=== PATIENT | male | born 1960 | race Caucasian/White ===

== ENCOUNTER 2018-03-04 12:12 | Emergency (ER) | payer OTHER ==
[~2018-03-04] VITALS: Ht 177.8 cm; Wt 78.0 kg
[~2018-03-04 12:12] MED LIST: ADVAIR 100/501 PUFF1 INH
[2018-03-04] MEDS ORDERED: ADVAIR HFA 115-12 GM INH (12:24)
[2018-03-04] MEDS ORDERED: LORAZEPAM2 MG ORAL (12:24)
[2018-03-04] MEDS ORDERED: ZOCOR20 M1 ORAL (12:24)
[2018-03-04] MEDS ORDERED: GABAPENTIN100 MG ORAL (12:24)
[2018-03-04] MEDS ORDERED: VENTOLIN HFA18 GM INH (12:24)
[2018-03-04] MEDS ORDERED: FAMOTIDINE20 MG ORAL (12:24)
[2018-03-04] MEDS ORDERED: Albuterol/Ipratropium 3ml neb HHN ONE (12:45)
[2018-03-04 13:40] VITALS: BP 104/72
--- NOTE | 2018-03-04 13:54 | Diagnostic Imaging Report ---
Indications: Syncopal episode yesterday Technique: Spiral acquisitions obtained through the brain. Angled axial and coronal 5 x 5 mm slices were reconstructed. Total dose length product 1418.31 mGycm. CTDI vol(s) 70.38 mGy. Dose reduction achieved using automated exposure control Comparison: None. Findings: No acute intracranial hemorrhage nor edema. No mass effect nor midline shift. Normal-sized ventricles and extra-axial CSF spaces. Normal breaux-white differentiation. The visualized orbits and sinuses are unremarkable. Intact calvarium. The mastoids are clear. Impression: Negative The CT scanner at [facility] is accredited by the [employer] and the scans are performed using protocols designed to limit radiation exposure to as low as reasonably achievable to attain images of sufficient resolution adequate for diagnostic evaluation.
[2018-03-04] MEDS ORDERED: VOLTAREN100 G1 TP (14:22)
[2018-03-04 14:29] VITALS: BP 104/72
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
== END 2018-03-04 14:35 | disposition home or self-care (01) ==
LOC: EMR 13:36
DX: S22.060A Wedge compression fracture of T7-T8 vertebra, initial encounter for closed fracture (principal); S09.90XA Unspecified injury of head, initial encounter; Y08.09XA Assault by strike by other specified type of sport equipment, initial encounter; Y92.89 Other specified places as the place of occurrence of the external cause; R42 Dizziness and giddiness; J44.9 Chronic obstructive pulmonary disease, unspecified; F31.9 Bipolar disorder, unspecified
CPT/HCPCS: 70450; 71250; 99284; J7620

== ENCOUNTER 2018-06-12 05:48 | Emergency (ER) | payer OTHER ==
[~2018-06-12] VITALS: Ht 177.8 cm; Wt 72.6 kg
[~2018-06-12 05:48] MED LIST changes: +ADVAIR HFA 115-12 GM INH; +FAMOTIDINE20 MG ORAL; +GABAPENTIN100 MG ORAL; +LORAZEPAM2 MG ORAL; +VENTOLIN HFA18 GM INH; +VOLTAREN100 G1 TP; +ZOCOR20 M1 ORAL
[2018-06-12] MEDS ORDERED: Pantoprazole Inj IV ONE (06:00)
[2018-06-12] MEDS ORDERED: Mylanta II UD 30ml ORAL ONE (06:00)
[2018-06-12] MEDS ORDERED: Lidocaine 2% Visc 15ml soln ORAL ONE (06:00)
--- NOTE | 2018-06-12 06:00 | Emergency Room Report ---
History of Present Illness General Chief Complaint: Abdominal Pain Source: Patient (Rashaad Thomas MD) Present Illness HPI Is a 57-year-old male with a history of gastritis, upper GI bleed to presents with chief complaint of epigastric pain. Onset tonight. Pain is 10 out of 10. No radiation. No nausea no vomiting. Denies any current alcohol use. No diarrhea. Nothing made it better. Nothing made it worse. Similar symptom in the past. No melena. (Rashaad Thomas MD) Allergies: Coded Allergies: No Known Allergies (Unverified , 06/24/15) Patient History Past Medical History: see triage record, old chart reviewed Past Surgical History: annie Pertinent Family History: none Social History: Reports: smoking Immunizations: other Reviewed Nursing Documentation: PMH: Agreed; PSxH: Agreed (Rashaad Thomas MD) Nursing Documentation-PMH Hx COPD: Yes History Of Psychiatric Problem: Yes - BIPOLAR (Rashaad Thomas MD) Review of Systems Eye: Denies: eye pain, blurred vision ENT: Denies: ear pain, nose congestion, throat swelling Respiratory: Denies: cough, shortness of breath Cardiovascular: Denies: chest pain, palpitations Gastrointestinal: Reports: abdominal pain; Denies: diarrhea, nausea, vomiting Musculoskeletal: Denies: back pain, joint pain Skin: Denies: rash Neurological: Denies: headache, numbness Endocrine: Denies: increased thirst, increased urine Hematologic/Lymphatic: Denies: easy bruising All Other Systems: negative except mentioned in HPI (Rashaad Thomas MD) Physical Exam Vital Signs Date Time Temp Pulse Resp B/P (MAP) Pulse Ox O2 Delivery O2 Flow Rate FiO2 06/12/18 05:47 98.4 80 18 136/74 100 Room Air vitals normal Sp02 EP Interpretation: reviewed, normal General Appearance: well appearing, no apparent distress, alert Head: normocephalic, atraumatic Eyes: bilateral eye PERRL, bilateral eye EOMI ENT: hearing grossly normal, normal pharynx Neck: full range of motion, supple, no meningismus Respiratory: chest non-tender, lungs clear, normal breath sounds Cardiovascular #1: regular rate, rhythm, no murmur Gastrointestinal: normal bowel sounds, no mass, no organomegaly, no bruit, non- distended, tenderness - Epigastric Musculoskeletal: back normal, gait/station normal, normal range of motion Psychiatric: mood/affect normal Skin: warm/dry (Rashaad Thomas MD) Medical Decision Making Diagnostic Impression: Primary Impression: Abdominal pain Qualified Codes: R10.13 - Epigastric pain Additional Impression: Amphetamine abuse ER Course Patient with epigastric pain. Differential include gastritis, peptic ulcer disease, sharp, acute abdomen to name a few. Labs pending. I will sign this patient out to Dr. Huang for final disposition. (Rashaad Thomas MD) ER Course Please see above note. Patient is improved. Pain is now 3/10. Abdominal exam is soft. White count is 13 1 without left shift. Rest of labs are unremarkable. Discussed findings with patient and the need for close outpatient follow-up and observation. Patient stable for outpatient observation and treatment. Laboratory Tests Test 06/12/18 06:00 06/12/18 07:50 White Blood Count 13.1 K/UL (4.8-10.8) H Red Blood Count 5.39 M/UL (4.70-6.10) Hemoglobin 16.1 G/DL (14.2-18.0) Hematocrit 48.1 % (42.0-52.0) Mean Corpuscular Volume 89 FL (80-99) Mean Corpuscular Hemoglobin 29.9 PG (27.0-31.0) Mean Corpuscular Hemoglobin Concent 33.6 G/DL (32.0-36.0) Red Cell Distribution Width 12.4 % (11.6-14.8) Platelet Count 467 K/UL (150-450) H Mean Platelet Volume 5.0 FL (6.5-10.1) L Neutrophils (%) (Auto) 64.5 % (45.0-75.0) Lymphocytes (%) (Auto) 24.1 % (20.0-45.0) Monocytes (%) (Auto) 8.3 % (1.0-10.0) Eosinophils (%) (Auto) 2.0 % (0.0-3.0) Basophils (%) (Auto) 1.0 % (0.0-2.0) Sodium Level 141 MMOL/L (136-145) Potassium Level 3.8 MMOL/L (3.5-5.1) Chloride Level 100 MMOL/L (98-107) Carbon Dioxide Level 35 MMOL/L (21-32) H Anion Gap 6 mmol/L (5-15) Blood Urea Nitrogen 21 mg/dL (7-18) H Creatinine 1.3 MG/DL (0.55-1.30) Estimate Glomerular Filtration Rate 56.9 mL/min (>60) Glucose Level 118 MG/DL (74-106) H Calcium Level 10.0 MG/DL (8.5-10.1) Total Bilirubin 0.3 MG/DL (0.2-1.0) Aspartate Amino Transferase (AST) 12 U/L (15-37) L Alanine Aminotransferase (ALT) 23 U/L (12-78) Alkaline Phosphatase 125 U/L (46-116) H Total Protein 8.1 G/DL (6.4-8.2) Albumin 3.7 G/DL (3.4-5.0) Globulin 4.4 g/dL Albumin/Globulin Ratio 0.8 (1.0-2.7) L Lipase 141 U/L (73-393) Urine Color Pale yellow Urine Appearance Clear Urine pH 7 (4.5-8.0) Urine Specific [place] 1.005 (1.005-1.035) Urine Protein Negative (NEGATIVE) Urine Glucose (UA) Negative (NEGATIVE) Urine Ketones Negative (NEGATIVE) Urine Blood Negative (NEGATIVE) Urine Nitrite Negative (NEGATIVE) Urine Bilirubin Negative (NEGATIVE) Urine Urobilinogen Normal MG/DL (0.0-1.0) Urine Leukocyte Esterase Negative (NEGATIVE) Urine Opiates Screen Negative (NEGATIVE) Urine Barbiturates Screen Negative (NEGATIVE) Phencyclidine (PCP) Screen Negative (NEGATIVE) Urine Amphetamines Screen Positive (NEGATIVE) H Urine Benzodiazepines Screen Negative (NEGATIVE) Urine Cocaine Screen Negative (NEGATIVE) Urine Marijuana (THC) Screen Negative (NEGATIVE) (Graham Huang MD) Rhythm Strip Diag. Results EP Interpretation: yes Rate: 88 Rhythm: NSR, no PVC's, no ectopy (Rashaad Thomas MD) EP Interpretation: yes Rhythm: NSR, no PVC's, no ectopy (Graham Huang MD) Chest X-Ray Diagnostic Results Chest X-Ray Diagnostic Results : Chest X-Ray Ordered: Yes # of Views/Limited/Complete: 1 View Indication: Chest Pain EP Interpretation: Yes Interpretation: no consolidation, no effusion, no pneumothorax, no acute cardiopulmonary disease Impression: No acute disease Electronically Signed by: Rashaad Thomas MD (Rashaad Thomas MD) Last Vital Signs Date Time Temp Pulse Resp B/P (MAP) Pulse Ox O2 Delivery O2 Flow Rate FiO2 06/12/18 05:47 98.4 80 18 136/74 100 Room Air Status: improved (Rashaad Thomas MD) Status: improved (Graham Huang MD) Disposition: HOME, SELF-CARE Condition: Stable Scripts Acetaminophen (Tylenol) 325 Mg Tablet 650 MG ORAL Q6H PRN for Prn Pain/Headache/Temp > 101, #20 TAB 0 Refills Prov: Graham Huang MD 06/12/18 Mag Hydrox/Al Hydrox/Simeth (MAALOX MAXIMUM STRENGTH SUSP) 355 Ml Oral.susp 30 ML PO Q6HR, #240 ML Prov: Graham Huang MD 06/12/18 Ondansetron Odt* (ZOFRAN ODT*) 4 Mg Tab.rapdis 4 MG BC EVERY 8 HOURS, #6 TAB 0 Refills Prov: Graham Huang MD 06/12/18 Rashaad Thomas MD Jun 12, 2018 06:00 Graham Huang MD Jun 12, 2018 08:03
[2018-06-12] MEDS ORDERED: GABAPENTIN300 MG ORAL (06:02)
--- NOTE | 2018-06-12 06:05 | NUR ---
ED Nurse Note: Pt brought in ER by EMT. Pt states he has abdominal pain x 3 days. Pt denies drinking. Pt nausea and vomitting all day today. Pt is AO x 4times, VSS, on room air no distress. SUKHI seen Pt at bedside.
--- NOTE | 2018-06-12 06:10 | NUR ---
ED Nurse Note: Blood sample sent to lab.
--- NOTE | 2018-06-12 06:14 | NUR ---
ED Nurse Note: X ray at bedside.
[2018-06-12 06:20] VITALS: BP 142/80
[2018-06-12 06:20] LABS: HEMATOCRIT 48.1 % (42.0-52.0); HEMOGLOBIN 16.1 G/DL (14.2-18.0); LYMPHOCYTES % (AUTO) 24.1 % (20.0-45.0); MEAN CORPUSCULAR VOLUME 89 FL (80-99); MONOCYTES % (AUTO) 8.3 % (1.0-10.0); NEUTROPHILS % (AUTO) 64.5 % (45.0-75.0); PLATELET COUNT 467 K/UL (150-450); RED BLOOD COUNT 5.39 M/UL (4.70-6.10); RED CELL DISTRIBUTION WIDTH 12.4 % (11.6-14.8); WHITE BLOOD COUNT 13.1 K/UL (4.8-10.8)
[2018-06-12 06:31] LABS: ANION GAP 6 mmol/L (5-15); BLOOD UREA NITROGEN 21 mg/dL (7-18); CARBON DIOXIDE 35 MMOL/L (21-32); CHLORIDE 100 MMOL/L (98-107); CREATININE 1.3 MG/DL (0.55-1.30); POTASSIUM 3.8 MMOL/L (3.5-5.1); SODIUM 141 MMOL/L (136-145)
[2018-06-12 06:36] LABS: ALANINE AMINOTRANSFERASE 23 U/L (12-78); ALBUMIN 3.7 G/DL (3.4-5.0); ALBUMIN/GLOBULIN RATIO 0.8 (1.0-2.7); ALKALINE PHOSPHATASE 125 U/L (46-116); ASPARTATE AMINO TRANSFERASE 12 U/L (15-37); BILIRUBIN,TOTAL 0.3 MG/DL (0.2-1.0)
--- NOTE | 2018-06-12 07:29 | NUR ---
ED Nurse Note: Patient sleeping in bed. No facial grimacing or guarding noted. Patient reports decreased pain. No N/V or D noted. Bed in lowest position.
[2018-06-12 07:30] VITALS: BP 154/88
[2018-06-12 08:00] LABS: APPEARANCE,URINE CLEAR; BILIRUBIN, URINE NEGATIVE (NEGATIVE); COLOR,URINE PALE YELLOW; GLUCOSE, URINE (UA) NEGATIVE (NEGATIVE); KETONES,URINE NEGATIVE (NEGATIVE); LEUKOCYTE ESTERASE ,URINE NEGATIVE (NEGATIVE); NITRITE,URINE NEGATIVE (NEGATIVE); PH,URINE 7 (4.5-8.0); PROTEIN,URINE NEGATIVE (NEGATIVE); UROBILINOGEN,URINE NORMAL MG/DL (0.0-1.0)
[2018-06-12] MEDS ORDERED: MAALOX MAXIMUM355 M1 PO (08:05)
[2018-06-12] MEDS ORDERED: ONDANSETRON ODT4 MG BC (08:05)
[2018-06-12] MEDS ORDERED: TYLENOL325 MG ORAL (08:05)
[2018-06-12 08:22] VITALS: BP 144/85
--- NOTE | 2018-06-12 08:40 | NUR ---
ED Nurse Note: Patient is cleared to be discharged per ERMD, Patient was given dc and prescription instructions, pt was able to verbalize understanding, pt id band and iv site removed without complications. pt is able to ambulate with steady gait. pt took all belongings.
--- NOTE | 2018-06-12 10:36 | Diagnostic Imaging Report ---
Indication: Dyspnea Comparison: 06/30/2015 A single view chest radiograph was obtained. Findings: Cardiomediastinal appearance is within normal limits for age. The lungs are clear. Pulmonary vascularity is appropriate. The diaphragmatic contour is smooth and costophrenic angles are sharp. No pleural effusions are identified. The bones are unremarkable. Impression: No acute findings
== END 2018-06-12 09:00 | disposition home or self-care (01) ==
LOC: EDBD 05:48 → EMR 06:37
DX: R10.13 Epigastric pain (principal); F15.10 Other stimulant abuse, uncomplicated; J44.9 Chronic obstructive pulmonary disease, unspecified; F31.9 Bipolar disorder, unspecified; Z87.891 Personal history of nicotine dependence
CPT/HCPCS: 36415; 71045; 80053; 80307; 81003; 83690; 85025; 96361; 96374; 99284; C9113

== ENCOUNTER 2018-09-21 17:46 | Emergency (ER) | payer OTHER ==
[~2018-09-21] VITALS: Ht 170.2 cm; Wt 72.1 kg
[~2018-09-21 17:46] MED LIST changes: +GABAPENTIN300 MG ORAL; +MAALOX MAXIMUM355 M1 PO; +ONDANSETRON ODT4 MG BC; +PROTONIX40 MG ORAL; +TYLENOL325 MG ORAL
[2018-09-21 17:54] VITALS: BP 144/107
[2018-09-21] MEDS ORDERED: DALIRESP500 MCG PO (17:55)
[2018-09-21] MEDS ORDERED: ZOLOFT100 MG ORAL (17:55)
--- NOTE | 2018-09-21 17:58 | NUR ---
ED Nurse Note: pt brought by RA from home due to abdominal pain aw nausea and vomiting since last night. pt also c/o consitpation. last BM was 2 days ago. epigastirc pain 12/25. AAO x4. respirations even and non-labored noted. on telemetry monitor. will wait for the further order.
[2018-09-21] MEDS ORDERED: Morphine Sulfate 4mg/ml Inj (IV USE ONLY) IVP ONE (18:00)
--- NOTE | 2018-09-21 18:07 | Emergency Room Report ---
History of Present Illness General Chief Complaint: Abdominal Pain Source: Patient Present Illness HPI The patient is brought in by EMS for several days of vomiting and inability to move his bowels. He last moved his bowels 2 days ago. He denies any blood or melena at that time. He cannot keep down water at this time. He is vomiting up bile without coffee grounds or blood. He complains about severe epigastric and chest pain that is constant at this time. He rates it 12-15/10 burning aching not radiating to his back although he does have chronic back pain. Is been unable to take any pain medication. The patient had some surgery for problem in his duodenum many years ago. He is not sure what the problem was. He has also been seen here for gastritis in the past. The patient smokes and has a history of COPD. Uses an inhaler at home. There is no phlegm or productive cough. He denies any fevers or chills. Chronic back pain with T7 compression fracture. He does drink alcohol but not daily. Allergies: Coded Allergies: No Known Allergies (Unverified , 06/24/15) Patient History Past Medical History: see triage record, old chart reviewed Social History: Reports: smoking, alcohol use Social History Narrative From home Reviewed Nursing Documentation: PMH: Agreed; PSxH: Agreed Nursing Documentation-PMH Past Medical History: No History, Except For Hx COPD: Yes Review of Systems All Other Systems: negative except mentioned in HPI Physical Exam Vital Signs Date Time Temp Pulse Resp B/P (MAP) Pulse Ox O2 Delivery O2 Flow Rate FiO2 09/21/18 17:42 97.9 116 17 139/91 (107) 97 Room Air Sp02 EP Interpretation: reviewed, normal General Appearance: well appearing, GCS 15, non-toxic, mild distress - Pain Head: normocephalic, atraumatic Eyes: bilateral eye normal inspection, bilateral eye PERRL, bilateral eye EOMI ENT: dry mucus membranes Neck: supple Respiratory: lungs clear, normal breath sounds Cardiovascular #1: regular rate, rhythm Cardiovascular #2: 2+ radial (R) Gastrointestinal: normal inspection, non tender, no mass, non-distended, no guarding, no rebound, tenderness - Epigastric, decreased bowel sounds Musculoskeletal: back normal, normal range of motion Neurologic: alert, oriented x3, grossly normal Psychiatric: mood/affect normal Skin: no rash Medical Decision Making Diagnostic Impression: Primary Impression: Abdominal pain Qualified Codes: R10.13 - Epigastric pain Additional Impressions: Leukocytosis Qualified Codes: D72.828 - Other elevated white blood cell count Renal insufficiency Nausea and vomiting Qualified Codes: R11.14 - Bilious vomiting ER Course Patient presents with vomiting and inability to move his bowels for at least 2 days with epigastric pain. Includes gastritis, peptic ulcer disease, pancreatitis, small bowel obstruction, diverticulitis amongst others. Patient appears dehydrated and has significant pain at this time. Evaluation with EKG, chest x-ray and labs. Patient treated with IV hydration, Pepcid, Zofran and morphine. EKG sinus rhythm with left anterior fascicular block. No acute injury. CXR clear. Abd. surgical clips RUQ. WBC elevated. Renal insufficiency. Ca elevated Slightly improved after treatment. Sending ionized calcium. Ionized calcium normal. Discussed with Dr. Howell - accepted in transfer. Laboratory Tests Test 09/21/18 18:00 09/21/18 18:10 09/21/18 19:08 White Blood Count 16.3 K/UL (4.8-10.8) H Red Blood Count 5.70 M/UL (4.70-6.10) Hemoglobin 17.1 G/DL (14.2-18.0) Hematocrit 51.0 % (42.0-52.0) Mean Corpuscular Volume 89 FL (80-99) Mean Corpuscular Hemoglobin 29.9 PG (27.0-31.0) Mean Corpuscular Hemoglobin Concent 33.5 G/DL (32.0-36.0) Red Cell Distribution Width 11.8 % (11.6-14.8) Platelet Count 403 K/UL (150-450) Mean Platelet Volume 5.1 FL (6.5-10.1) L Neutrophils (%) (Auto) 81.3 % (45.0-75.0) H Lymphocytes (%) (Auto) 11.6 % (20.0-45.0) L Monocytes (%) (Auto) 6.0 % (1.0-10.0) Eosinophils (%) (Auto) 0.1 % (0.0-3.0) Basophils (%) (Auto) 0.9 % (0.0-2.0) Prothrombin Time 10.2 SEC (9.30-11.50) Prothrombin Time INR 1.0 (0.9-1.1) PTT 25 SEC (23-33) Sodium Level 143 MMOL/L (136-145) Potassium Level 3.7 MMOL/L (3.5-5.1) Chloride Level 95 MMOL/L (98-107) L Carbon Dioxide Level 39 MMOL/L (21-32) H Anion Gap 10 mmol/L (5-15) Blood Urea Nitrogen 23 mg/dL (7-18) H Creatinine 1.5 MG/DL (0.55-1.30) H Estimate Glomerular Filtration Rate 48.1 mL/min (>60) Glucose Level 157 MG/DL (74-106) H Calcium Level 12.4 MG/DL (8.5-10.1) H Total Bilirubin 0.5 MG/DL (0.2-1.0) Aspartate Amino Transferase (AST) 18 U/L (15-37) Alanine Aminotransferase (ALT) 31 U/L (12-78) Alkaline Phosphatase 166 U/L (46-116) H Total Creatine Kinase 47 U/L (26-308) Troponin I 0.000 ng/mL (0.000-0.056) Total Protein 8.6 G/DL (6.4-8.2) H Albumin 4.5 G/DL (3.4-5.0) Globulin 4.1 g/dL Albumin/Globulin Ratio 1.1 (1.0-2.7) Lipase 84 U/L (73-393) Serum Alcohol < 3 mg/dL Ionized Calcium (Measured) Pending EKG Diagnostic Results Rate: normal Rhythm: NSR ST Segments: no acute changes - Left anterior fascicular block Rhythm Strip Diag. Results EP Interpretation: yes Rhythm: NSR, no PVC's, no ectopy Chest X-Ray Diagnostic Results Chest X-Ray Diagnostic Results : Chest X-Ray Ordered: Yes # of Views/Limited/Complete: 1 View Indication: Other EP Interpretation: Yes Interpretation: no consolidation, no effusion, no pneumothorax Impression: No acute disease Electronically Signed by: Electronically signed by Graham Huang MD Other X-Ray Diagnostic Results Other X-Ray Diagnostic Results : X-Ray ordered: Abdomen # of Views/Limited Vs Complete: 2 View Indication: Pain EP Interpretation: Yes Interpretation: nonspecific bowel gas, no sbo, other - clips RUQ Impression: Other Electronically Signed by: Electronically signed by Graham Huang MD Last Vital Signs Date Time Temp Pulse Resp B/P (MAP) Pulse Ox O2 Delivery O2 Flow Rate FiO2 09/21/18 19:43 98.1 89 18 154/98 100 Room Air Status: improved Disposition: [facility] [place] [facility] Condition: Serious Graham Huang MD Sep 21, 2018 18:07
[2018-09-21 18:17] LABS: BASOPHILS % (AUTO) 0.9 % (0.0-2.0); EOSINOPHILS % (AUTO) 0.1 % (0.0-3.0); HEMOGLOBIN 17.1 G/DL (14.2-18.0); LYMPHOCYTES % (AUTO) 11.6 % (20.0-45.0); MEAN CORPUSCULAR VOLUME 89 FL (80-99); NEUTROPHILS % (AUTO) 81.3 % (45.0-75.0); PLATELET COUNT 403 K/UL (150-450); RED CELL DISTRIBUTION WIDTH 11.8 % (11.6-14.8); WHITE BLOOD COUNT 16.3 K/UL (4.8-10.8)
[2018-09-21 18:20] LABS: ANION GAP 10 mmol/L (5-15); BLOOD UREA NITROGEN 23 mg/dL (7-18); CALCIUM 12.4 MG/DL (8.5-10.1); CARBON DIOXIDE 39 MMOL/L (21-32); CHLORIDE 95 MMOL/L (98-107); CREATININE 1.5 MG/DL (0.55-1.30); POTASSIUM 3.7 MMOL/L (3.5-5.1); SODIUM 143 MMOL/L (136-145)
[2018-09-21 18:24] LABS: ALANINE AMINOTRANSFERASE 31 U/L (12-78); ALBUMIN 4.5 G/DL (3.4-5.0); ALBUMIN/GLOBULIN RATIO 1.1 (1.0-2.7); ALKALINE PHOSPHATASE 166 U/L (46-116); ASPARTATE AMINO TRANSFERASE 18 U/L (15-37); BILIRUBIN,TOTAL 0.5 MG/DL (0.2-1.0); CREATINE KINASE 47 U/L (26-308)
--- NOTE | 2018-09-21 19:03 | NUR ---
HAND-OFF: Report given to Dillon Mina RN. endorsing pending urine sample.
--- NOTE | 2018-09-21 19:08 | NUR ---
ED Nurse Note: received patient from jorge luis baldwin. patient resting comfortably nad. patient unable to provide urine sample. pt aware of pending transfer.
[2018-09-21 19:10] VITALS: BP 154/98
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
[2018-09-21 19:43] VITALS: BP 154/98
--- NOTE | 2018-09-22 12:06 | Diagnostic Imaging Report ---
Indication: Abdominal pain Technique: Supine view of the abdomen Comparison: 06/24/2015 Findings: Bowel gas pattern is unremarkable. There are cholecystectomy clips. Findings are unchanged Impression: No acute process
--- NOTE | 2018-09-22 12:07 | Diagnostic Imaging Report ---
Indication: Pain Technique: One view of the chest Comparison: 08/04/2018 Findings: Less optimal inspiration currently. Lungs and pleural spaces are clear. Normal heart size. Somewhat tortuous aorta Impression: No acute process
== END 2018-09-21 19:45 | disposition short-term general hospital (02) ==
LOC: EDBD 17:46 → EMR 18:40
DX: R11.14 Bilious vomiting (principal); R10.13 Epigastric pain; D72.828 Other elevated white blood cell count; N28.9 Disorder of kidney and ureter, unspecified; R07.9 Chest pain, unspecified; F17.200 Nicotine dependence, unspecified, uncomplicated; J44.9 Chronic obstructive pulmonary disease, unspecified; I44.4 Left anterior fascicular block
CPT/HCPCS: 36415; 71045; 74018; 80053; 80329; 82330; 82550; 83690; 84484; 85025; 85610; 85730; 93005; 96361; 96374; 96375; 99285; J2270; J2405; S0028

== ENCOUNTER 2018-12-09 15:46 | Emergency (ER) | payer OTHER ==
[~2018-12-09] VITALS: Ht 167.6 cm; Wt 65.8 kg
[~2018-12-09 15:46] MED LIST changes: +DALIRESP500 MCG PO; +ZOLOFT100 MG ORAL
[2018-12-09 16:00] VITALS: BP 151/98
--- NOTE | 2018-12-09 16:00 | NUR ---
ED Nurse Note: pt brought in to ER by ambulance from [facility] care due to general body pain 5/10 without trauma or injury. calm and cooperative but fatigued. skin clean and intact. no acute distress noted at this time. pt is in gown and on engine monitor.
--- NOTE | 2018-12-09 16:10 | NUR ---
ED Nurse Note: SUKHI at bedside. pt reported to SUKHI that he has abdominal pain and nausea which he denied earlier.
--- NOTE | 2018-12-09 16:21 | Emergency Room Report ---
History of Present Illness General Chief Complaint: General Complaint Source: EMS Present Illness HPI Disclaimer: Please note that this report is being documented using DRAGON technology. This can lead to erroneous entry secondary to incorrect interpretation by the dictating instrument. HPI: 58-year-old male with history of COPD presents for evaluation of abdominal pain, vomiting, diarrhea, cough and myalgias. Symptoms began 2 days ago. He noticed abdominal discomfort and several episodes of nonbloody, nonbilious emesis as well as profuse watery diarrhea. Denies male or hematochezia. Denies dysuria or hematuria. He notes pain over the middle of the back and a worsening cough. He has a cough at baseline given his COPD and is still smoking though he states this is aggravated. He notes subjective fevers, fatigue, chills. Denies sore throat or nasal congestion. PMH: COPD, disc herniation PSH: Hernia repair Allergies: Denies Social Hx: Current smoker Allergies: Coded Allergies: No Known Allergies (Unverified , 06/24/15) Nursing Documentation-PMH Hx COPD: Yes History Of Psychiatric Problem: Yes - bipolar Review of Systems All Other Systems: negative except mentioned in HPI Physical Exam Vital Signs Date Time Temp Pulse Resp B/P (MAP) Pulse Ox O2 Delivery O2 Flow Rate FiO2 12/09/18 15:48 97.9 86 18 139/96 (110) 97 Room Air General: Awake and alert, no acute distress HEENT: NC/AT. EOMI. Neck: Supple, trachea midline Chest Wall: No tenderness, no deformity Cardiovascular: RRR. S1 and S2 normal. No murmur appreciated Resp: Normal work of breathing. Persistent cough throughout my evaluations. Bilateral crackles at the bases with expiratory wheezes. Abdomen: Abdomen is soft, nondistended. Tenderness diffusely with no focal tenderness Skin: Intact. No abrasions, laceration or rash over the exposed skin MSK: Normal tone and bulk. Moving all extremities. No obvious deformity. Neuro: Awake and alert. Mentating appropriately. Back/Spine: No midline tenderness in the cervical, thoracic or lumbosacral spine. There is significant paraspinal tenderness and tenderness over the trapezius bilaterally. Medical Decision Making Diagnostic Impression: Primary Impression: Abdominal pain, vomiting, and diarrhea Additional Impression: Viral syndrome ER Course 58-year-old male presents for evaluation of abdominal pain, vomiting, diarrhea, worsening cough and subjective fevers and chills. Differential includes but not limited to viral syndrome, gastroenteritis, pneumonia, bronchitis, COPD exacerbation. He is in no respiratory distress though he does have a cough and bilateral crackles. Will obtain chest x-ray, lab work to evaluate for dehydration, treat with antiemetics, IV fluid bolus and Toradol for myalgias. Laboratory Tests Test 12/09/18 16:30 12/09/18 18:00 White Blood Count 9.7 K/UL (4.8-10.8) Red Blood Count 5.13 M/UL (4.70-6.10) Hemoglobin 15.2 G/DL (14.2-18.0) Hematocrit 45.8 % (42.0-52.0) Mean Corpuscular Volume 89 FL (80-99) Mean Corpuscular Hemoglobin 29.7 PG (27.0-31.0) Mean Corpuscular Hemoglobin Concent 33.3 G/DL (32.0-36.0) Red Cell Distribution Width 10.8 % (11.6-14.8) L Platelet Count 337 K/UL (150-450) Mean Platelet Volume 5.4 FL (6.5-10.1) L Neutrophils (%) (Auto) 58.3 % (45.0-75.0) Lymphocytes (%) (Auto) 27.2 % (20.0-45.0) Monocytes (%) (Auto) 9.9 % (1.0-10.0) Eosinophils (%) (Auto) 3.2 % (0.0-3.0) H Basophils (%) (Auto) 1.3 % (0.0-2.0) Sodium Level 141 MMOL/L (136-145) Potassium Level 4.4 MMOL/L (3.5-5.1) Chloride Level 103 MMOL/L (98-107) Carbon Dioxide Level 29 MMOL/L (21-32) Anion Gap 9 mmol/L (5-15) Blood Urea Nitrogen 17 mg/dL (7-18) Creatinine 1.0 MG/DL (0.55-1.30) Estimate Glomerular Filtration Rate > 60 mL/min (>60) Glucose Level 100 MG/DL (74-106) Calcium Level 9.5 MG/DL (8.5-10.1) Total Bilirubin 0.2 MG/DL (0.2-1.0) Aspartate Amino Transferase (AST) 13 U/L (15-37) L Alanine Aminotransferase (ALT) 18 U/L (12-78) Alkaline Phosphatase 129 U/L (46-116) H Troponin I 0.000 ng/mL (0.000-0.056) Total Protein 7.0 G/DL (6.4-8.2) Albumin 3.6 G/DL (3.4-5.0) Globulin 3.4 g/dL Albumin/Globulin Ratio 1.1 (1.0-2.7) Lipase 124 U/L (73-393) Urine Color Pale yellow Urine Appearance Clear Urine pH 6 (4.5-8.0) Urine Specific [place] 1.020 (1.005-1.035) Urine Protein 2+ (NEGATIVE) H Urine Glucose (UA) Negative (NEGATIVE) Urine Ketones Negative (NEGATIVE) Urine Blood Negative (NEGATIVE) Urine Nitrite Negative (NEGATIVE) Urine Bilirubin Negative (NEGATIVE) Urine Urobilinogen Normal MG/DL (0.0-1.0) Urine Leukocyte Esterase Negative (NEGATIVE) Urine RBC 0-2 /HPF (0 - 0) H Urine WBC 0-2 /HPF (0 - 0) Urine Squamous Epithelial Cells None /LPF (NONE/OCC) Urine Bacteria Occasional /HPF (NONE) Urine Sperm Few /LPF (NONE) Chest X-Ray Diagnostic Results Chest X-Ray Diagnostic Results : Chest X-Ray Ordered: Yes # of Views/Limited/Complete: 1 View Indication: Shortness of Breath EP Interpretation: Yes Interpretation: no consolidation, no effusion, no pneumothorax, no acute cardiopulmonary disease Impression: No acute disease Electronically Signed by: Electronically signed by Dr. Glen Landrum Last Vital Signs Date Time Temp Pulse Resp B/P (MAP) Pulse Ox O2 Delivery O2 Flow Rate FiO2 12/09/18 16:00 97.9 85 18 151/98 97 Room Air Reevaluation Impression Labs have returned largely within normal limits. Nose white count, hemoglobin stable, electrolytes within normal limits, creatinine 1.0 and BUN 17. Troponin is negative, urine is noninfectious. Patient is feeling better after receiving Toradol and Tylenol and IV fluids. No vomiting in the emergency department. Likely, this is a viral syndrome which should resolve in the next few days. He will be discharged with Zofran and follow-up with his PMD. We discussed reasons to return to the emergency department. He understands and agrees with the treatment plan was discharged home Disposition: HOME, SELF-CARE Condition: Improved Scripts Ondansetron Odt* (ZOFRAN ODT*) 4 Mg Tab.rapdis 4 MG BC EVERY 6 HOURS PRN for Nausea & Vomiting, #20 TAB 0 Refills Prov: Glen Landrum MD 12/09/18 Glen Landrum MD Dec 09, 2018 16:21
[2018-12-09] MEDS ORDERED: Ketorolac 30mg Inj IV ONE (16:30)
[2018-12-09 16:38] LABS: BASOPHILS % (AUTO) 1.3 % (0.0-2.0); EOSINOPHILS % (AUTO) 3.2 % (0.0-3.0); HEMATOCRIT 45.8 % (42.0-52.0); HEMOGLOBIN 15.2 G/DL (14.2-18.0); LYMPHOCYTES % (AUTO) 27.2 % (20.0-45.0); MEAN CORPUSCULAR VOLUME 89 FL (80-99); MONOCYTES % (AUTO) 9.9 % (1.0-10.0); NEUTROPHILS % (AUTO) 58.3 % (45.0-75.0); PLATELET COUNT 337 K/UL (150-450); RED BLOOD COUNT 5.13 M/UL (4.70-6.10); RED CELL DISTRIBUTION WIDTH 10.8 % (11.6-14.8); WHITE BLOOD COUNT 9.7 K/UL (4.8-10.8)
--- NOTE | 2018-12-09 16:48 | NUR ---
ED Nurse Note: chest x-ray at bedside.
[2018-12-09 16:54] LABS: ANION GAP 9 mmol/L (5-15); BLOOD UREA NITROGEN 17 mg/dL (7-18); CALCIUM 9.5 MG/DL (8.5-10.1); CARBON DIOXIDE 29 MMOL/L (21-32); CHLORIDE 103 MMOL/L (98-107); POTASSIUM 4.4 MMOL/L (3.5-5.1); SODIUM 141 MMOL/L (136-145)
[2018-12-09 16:59] LABS: ALANINE AMINOTRANSFERASE 18 U/L (12-78); ALBUMIN 3.6 G/DL (3.4-5.0); ALBUMIN/GLOBULIN RATIO 1.1 (1.0-2.7); ALKALINE PHOSPHATASE 129 U/L (46-116); ASPARTATE AMINO TRANSFERASE 13 U/L (15-37); BILIRUBIN,TOTAL 0.2 MG/DL (0.2-1.0)
[2018-12-09] MEDS ORDERED: ONDANSETRON ODT4 MG BC (17:36)
[2018-12-09] MEDS ORDERED: Acetaminophen 500mg (ES) tab ORAL ONE (18:00)
--- NOTE | 2018-12-09 18:10 | NUR ---
ED Nurse Note: ERMD at bedside.
[2018-12-09 18:13] LABS: APPEARANCE,URINE CLEAR; BILIRUBIN, URINE NEGATIVE (NEGATIVE); COLOR,URINE PALE YELLOW; GLUCOSE, URINE (UA) NEGATIVE (NEGATIVE); KETONES,URINE NEGATIVE (NEGATIVE); LEUKOCYTE ESTERASE ,URINE NEGATIVE (NEGATIVE); NITRITE,URINE NEGATIVE (NEGATIVE); PH,URINE 6 (4.5-8.0); PROTEIN,URINE 2+ (NEGATIVE); UROBILINOGEN,URINE NORMAL MG/DL (0.0-1.0)
[2018-12-09 18:19] VITALS: BP 142/83
--- NOTE | 2018-12-09 18:20 | NUR ---
ED Nurse Note: Pt cleared by health care Provider for discharge. DC instructions/prescription was given and explained to pt and verbalized understanding of teachings. All medical deviecs such as ID band removed. Pt is AAO x4, ambulatory and left with all personal belongings.
--- NOTE | 2018-12-10 10:28 | Diagnostic Imaging Report ---
Indication: Cough Technique: One view of the chest Comparison: 09/21/2018 Findings: Lungs and pleural spaces are clear. The heart size is normal. Impression: No acute process
== END 2018-12-09 18:20 | disposition home or self-care (01) ==
LOC: EDBD 15:46 → EMR 16:01
DX: B34.9 Viral infection, unspecified (principal); R11.10 Vomiting, unspecified; R19.7 Diarrhea, unspecified; R10.9 Unspecified abdominal pain; F31.9 Bipolar disorder, unspecified; J44.9 Chronic obstructive pulmonary disease, unspecified; F17.200 Nicotine dependence, unspecified, uncomplicated
CPT/HCPCS: 36415; 71045; 80053; 81003; 83690; 84484; 85025; 96361; 96374; 96375; 99284; J1885; J2405

== ENCOUNTER 2018-12-15 01:48 | Emergency (ER) | payer OTHER ==
[~2018-12-15] VITALS: Ht 170.2 cm; Wt 77.1 kg
[2018-12-15] MEDS ORDERED: LORazepam Inj 2mg/ml 1ml IV ONE (02:00)
[2018-12-15] MEDS ORDERED: Aspirin Baby 81mg ORAL ONE (02:00)
--- NOTE | 2018-12-15 02:05 | NUR ---
ED Nurse Note: Recieved pt KAYLIN from residence of [facility] with c/o seizures, was reported that other residents witnessed a seizure, poor historian at giving information, unsurre if tonic clonic and how long, pt arrived completely awake, alert and oriented x 4 but has strange behaviors, constantly moving about, speaking to himself, and is inappropriate, does follow commands but requires frequent re-orientation, pt placed in gown and on cardiac monitoring, si9de rails padded for seizure precautions, no sz activity noted, iv line started and labs drawn, MD at bedside, will continue to closely monitor and resume care as ordered.
--- NOTE | 2018-12-15 02:20 | Emergency Room Report ---
History of Present Illness General Chief Complaint: Seizure Source: Patient, Medical Record, EMS Present Illness HPI Is a 58-year-old male with history of COPD. He presents with chief complaint of chest pain. Initially called 911 for pain complaint. On arrival, EMS said that he complained of generalized pain and was shaky thinking that he may have had a seizure. When he got to the ambulance, he complained of chest pain. He said he thought he had a heart attack 3 to 4 hours ago. Patient was not cooperative with EMS. On arrival he is very anxious and shaky. No nausea no vomiting. No fever chills. Pain diffuse in nature. 9 out of 10. No focal deficit. No oral trauma. No incontinence of bowel or urine. Allergies: Coded Allergies: No Known Allergies (Unverified , 06/24/15) Patient History Past Medical History: see triage record, old chart reviewed, COPD Past Surgical History: other Pertinent Family History: none Social History: Reports: smoking Immunizations: other Reviewed Nursing Documentation: PMH: Agreed; PSxH: Agreed Nursing Documentation-PMH Hx COPD: Yes Review of Systems Eye: Denies: eye pain, blurred vision ENT: Denies: ear pain, nose congestion, throat swelling Respiratory: Reports: shortness of breath; Denies: cough Cardiovascular: Reports: chest pain; Denies: palpitations Gastrointestinal: Denies: abdominal pain, diarrhea, nausea, vomiting Musculoskeletal: Denies: back pain, joint pain Skin: Denies: rash Neurological: Denies: headache, numbness Endocrine: Denies: increased thirst, increased urine Hematologic/Lymphatic: Denies: easy bruising All Other Systems: negative except mentioned in HPI Physical Exam Vital Signs Date Time Temp Pulse Resp B/P (MAP) Pulse Ox O2 Delivery O2 Flow Rate FiO2 12/15/18 01:52 98.1 80 24 157/109 (125) 100 Room Air Vitals with high blood pressure Sp02 EP Interpretation: reviewed, normal General Appearance: well appearing, no apparent distress, alert, other - Not cooperative Head: normocephalic, atraumatic Eyes: bilateral eye PERRL, bilateral eye EOMI ENT: hearing grossly normal, normal pharynx Neck: full range of motion, supple, no meningismus Respiratory: chest non-tender, lungs clear, normal breath sounds Cardiovascular #1: regular rate, rhythm, no murmur Gastrointestinal: normal bowel sounds, non tender, no mass, no organomegaly, no bruit, non-distended Musculoskeletal: back normal, gait/station normal, normal range of motion Psychiatric: anxious Medical Decision Making Diagnostic Impression: Primary Impression: Atypical chest pain Additional Impressions: Drug-induced anxiety disorder Methamphetamine abuse Hypertension Qualified Codes: I10 - Essential (primary) hypertension ER Course Presents with atypical chest pain. Is very anxious and better after Ativan. I suspect that this is drug-induced anxiety. No evidence of ACS, PE, dissection to name a few. Will discharge home. EKG Diagnostic Results Rate: normal Rhythm: NSR ST Segments: no acute changes ASA given to the pt in ED: Yes Rhythm Strip Diag. Results EP Interpretation: yes Rate: 89 Rhythm: NSR, no PVC's, no ectopy Chest X-Ray Diagnostic Results Chest X-Ray Diagnostic Results : Chest X-Ray Ordered: Yes # of Views/Limited/Complete: 1 View Indication: Chest Pain EP Interpretation: Yes Interpretation: no consolidation, no effusion, no pneumothorax, no acute cardiopulmonary disease Impression: No acute disease Electronically Signed by: Rashaad Thomas MD Last Vital Signs Date Time Temp Pulse Resp B/P (MAP) Pulse Ox O2 Delivery O2 Flow Rate FiO2 12/15/18 01:52 98.1 80 24 157/109 (125) 100 Room Air Status: improved Disposition: HOME, SELF-CARE Condition: Stable Scripts Amlodipine Besylate (Norvasc) 10 Mg Tablet 10 MG ORAL DAILY, #30 TAB Prov: Rashaad Thomas MD 12/15/18 Referrals: NON PHYSICIAN (PCP) Additional Instructions: Abstain from drugs and alcohol. Follow-up with your doctor in 7 days. Return if symptoms worsen. Rashaad Thomas MD Dec 15, 2018 02:20
[2018-12-15 02:23] LABS: BASOPHILS % (AUTO) 1.5 % (0.0-2.0); EOSINOPHILS % (AUTO) 3.1 % (0.0-3.0); HEMATOCRIT 44.9 % (42.0-52.0); HEMOGLOBIN 15.4 G/DL (14.2-18.0); LYMPHOCYTES % (AUTO) 35.1 % (20.0-45.0); MEAN CORPUSCULAR VOLUME 88 FL (80-99); MONOCYTES % (AUTO) 8.8 % (1.0-10.0); NEUTROPHILS % (AUTO) 51.5 % (45.0-75.0); PLATELET COUNT 328 K/UL (150-450); RED BLOOD COUNT 5.11 M/UL (4.70-6.10); RED CELL DISTRIBUTION WIDTH 10.7 % (11.6-14.8)
[2018-12-15 02:24] LABS: APPEARANCE,URINE CLEAR; BILIRUBIN, URINE NEGATIVE (NEGATIVE); COLOR,URINE PALE YELLOW; GLUCOSE, URINE (UA) NEGATIVE (NEGATIVE); KETONES,URINE NEGATIVE (NEGATIVE); LEUKOCYTE ESTERASE ,URINE NEGATIVE (NEGATIVE); NITRITE,URINE NEGATIVE (NEGATIVE); PH,URINE 8 (4.5-8.0); PROTEIN,URINE 1+ (NEGATIVE); UROBILINOGEN,URINE NORMAL MG/DL (0.0-1.0)
--- NOTE | 2018-12-15 02:25 | NUR ---
ED Nurse Note: pt straight cath for urine sample, urine very cloudy and thick, pus like, sent to lab.
[2018-12-15 02:30] VITALS: BP 168/95
[2018-12-15 02:36] LABS: ANION GAP 5 mmol/L (5-15); BLOOD UREA NITROGEN 17 mg/dL (7-18); CALCIUM 9.9 MG/DL (8.5-10.1); CARBON DIOXIDE 31 MMOL/L (21-32); CHLORIDE 104 MMOL/L (98-107); CREATININE 1.3 MG/DL (0.55-1.30); POTASSIUM 3.9 MMOL/L (3.5-5.1); SODIUM 140 MMOL/L (136-145)
[2018-12-15 02:51] LABS: ALANINE AMINOTRANSFERASE 27 U/L (12-78); ALBUMIN 3.8 G/DL (3.4-5.0); ALBUMIN/GLOBULIN RATIO 1.1 (1.0-2.7); ALKALINE PHOSPHATASE 126 U/L (46-116); ASPARTATE AMINO TRANSFERASE 21 U/L (15-37); BILIRUBIN,TOTAL 0.3 MG/DL (0.2-1.0); CKMB 2.4 NG/ML (0.0-3.6); CREATINE KINASE 141 U/L (26-308)
[2018-12-15] MEDS ORDERED: NORVASC10 MG ORAL (03:34)
[2018-12-15 04:00] VITALS: BP 159/88
--- NOTE | 2018-12-15 04:00 | NUR ---
ED Nurse Note: Pt continues to rest in bed, becoming more awake and alert, behavior is less bizzarre, pt having conversation with me, pt denies drug use but states he was in the room with people smoking drugs, no seizure activity noted, denies chest pain, no sob or labored breathing, pt given water, tolerating oral fluids well, will continue to closely monitor and prepare for discharge in am.
--- NOTE | 2018-12-15 05:00 | NUR ---
ED Nurse Note: PT CONTINUES TO REST QUIETLY, SLEEPING, AROUSES EASILY TO VERBAL STIMULI, PT IS ORIENTED X 4, DENIES CP OR ANY PAIN, NO SOB OR LABORED BREATHING, V/S STABLE, WILL CONTINUE TO MONITOR AND PREPARE FOR DISCHARGE, NO SEIZURE ACTIVITY NOTED.
[2018-12-15 05:15] VITALS: BP 147/84
[2018-12-15 05:45] VITALS: BP 147/84
--- NOTE | 2018-12-15 05:45 | NUR ---
ER DISCHARGE NOTE: Patient is cleared to be discharged per ERMD, pt is aox4, on room air, with stable vital signs. pt was given dc and prescription instructions, pt was able to verbalize understanding, pt id band and iv site removed without complications. pt is able to ambulate with steady gait. pt took all belongings.
--- NOTE | 2018-12-15 09:39 | Diagnostic Imaging Report ---
Indication: Chest pain Technique: One view of the chest Comparison: 12/09/2018 Findings: The left costophrenic angle is cutoff exam. The heart size is normal. There is no significant interim change Impression: Negative
--- NOTE | 2018-12-15 11:29 | Cardiology Report ---
APPROVED REPORT EKG Measurement Heart [id number] [place] [id number] Normal sinus rhythm Septal infarct, age undetermined Abnormal ECG
== END 2018-12-15 05:45 | disposition home or self-care (01) ==
LOC: EDUNIT# 01:48 → EDBD 01:48 → EMR 02:04
DX: R07.89 Other chest pain (principal); I10 Essential (primary) hypertension; F15.180 Other stimulant abuse with stimulant-induced anxiety disorder; J44.9 Chronic obstructive pulmonary disease, unspecified; F17.200 Nicotine dependence, unspecified, uncomplicated
CPT/HCPCS: 36415; 71045; 80053; 80307; 81003; 82550; 82553; 83880; 84484; 85025; 93005; 96361; 96374; 99284

== ENCOUNTER 2019-05-07 07:50 | Emergency (ER) | payer OTHER ==
[~2019-05-07] VITALS: Ht 162.6 cm; Wt 70.3 kg
[~2019-05-07 07:50] MED LIST changes: +NORVASC10 MG ORAL
--- NOTE | 2019-05-07 07:55 | NUR ---
ED Nurse Note: Late entry: PT and report received from [id number]; 58yo M; from [facility]; reported bilateral lung clear PT received tachypneic, hx of emphysema, NKA, reported advair and proventil given by EMS, 12 lead by EMS showed SR; 99% RA; BS 138; hx of drug abuse, asked PT personally what he used, PT responded that he smoked meth, asked within 24 hours. Received PT with L-hand 20g from EMS, Placed PT on 2L-NC will continue to monitor.
--- NOTE | 2019-05-07 08:07 | Emergency Room Report ---
History of Present Illness General Chief Complaint: Dyspnea/Respdistress Source: Patient, EMS Present Illness HPI Patient initially presents with complaints of shortness of breath However initial complaint is left-sided chest pain and left-sided body pain upon my discussion denies any headache Denies any vomiting or diarrhea denies any focal weakness After further discussion patient also does report methamphetamine use prior to the pain starting Denies any pleurisy Allergies: Coded Allergies: No Known Allergies (Unverified , 06/24/15) Patient History Past Medical History: see triage record Reviewed Nursing Documentation: PMH: Agreed; PSxH: Agreed Nursing Documentation-PMH Hx Cardiac Problems: Yes Review of Systems All Other Systems: negative except mentioned in HPI Physical Exam Vital Signs Date Time Temp Pulse Resp B/P (MAP) Pulse Ox O2 Delivery O2 Flow Rate FiO2 05/07/19 07:40 98.4 73 19 127/89 (102) 98 Room Air Sp02 EP Interpretation: reviewed, normal General Appearance: other - Appears anxious Head: normocephalic, atraumatic Eyes: bilateral eye PERRL, bilateral eye EOMI ENT: EOM grossly intact Neck: supple Respiratory: lungs clear, no respiratory distress, no retraction Cardiovascular #1: regular rate, rhythm Gastrointestinal: non tender, soft Musculoskeletal: normal inspection Neurologic: alert, oriented x3 Psychiatric: anxious Skin: no rash Lymphatic: no adenopathy Medical Decision Making Diagnostic Impression: Primary Impression: Chest pain ER Course Patient is a fairly complex patient with multiple differential to consideration including but not limited to cardiac cardiopulmonary and vascular emergencies Patient has imaging obtained which does not show any acute process Patient's EKG does not show any acute process as well Patient does report using methamphetamines recently Complains of left-sided discomfort after receiving pain medication and further observation patient continues to do well And at this time is stable for close outpatient follow-up Labs Test 05/07/19 08:13 White Blood Count 16.5 K/UL (4.8-10.8) Red Blood Count 5.42 M/UL (4.70-6.10) Hemoglobin 16.3 G/DL (14.2-18.0) Hematocrit 46.7 % (42.0-52.0) Mean Corpuscular Volume 86 FL (80-99) Mean Corpuscular Hemoglobin 30.0 PG (27.0-31.0) Mean Corpuscular Hemoglobin Concent 34.8 G/DL (32.0-36.0) Red Cell Distribution Width 12.3 % (11.6-14.8) Platelet Count 369 K/UL (150-450) Mean Platelet Volume 5.0 FL (6.5-10.1) Neutrophils (%) (Auto) 83.9 % (45.0-75.0) Lymphocytes (%) (Auto) 11.1 % (20.0-45.0) Monocytes (%) (Auto) 4.4 % (1.0-10.0) Eosinophils (%) (Auto) 0.2 % (0.0-3.0) Basophils (%) (Auto) 0.4 % (0.0-2.0) Sodium Level 140 MMOL/L (136-145) Potassium Level 3.7 MMOL/L (3.5-5.1) Chloride Level 101 MMOL/L (98-107) Carbon Dioxide Level 25 MMOL/L (21-32) Anion Gap 14 mmol/L (5-15) Blood Urea Nitrogen 21 mg/dL (7-18) Creatinine 1.1 MG/DL (0.55-1.30) Estimat Glomerular Filtration Rate > 60 mL/min (>60) Glucose Level 132 MG/DL (74-106) Calcium Level 9.8 MG/DL (8.5-10.1) Troponin I 0.000 ng/mL (0.000-0.056) Rhythm Strip Diag. Results EP Interpretation: yes Rate: 88 Rhythm: NSR, no PVC's, no ectopy Chest X-Ray Diagnostic Results Chest X-Ray Diagnostic Results : Chest X-Ray Ordered: Yes # of Views/Limited/Complete: 1 View Indication: Chest Pain EP Interpretation: Yes Interpretation: no consolidation, no effusion, no pneumothorax Impression: No acute disease Electronically Signed by: Karla Guy DO Last Vital Signs Date Time Temp Pulse Resp B/P (MAP) Pulse Ox O2 Delivery O2 Flow Rate FiO2 05/07/19 07:40 98.4 73 19 127/89 (102) 98 Room Air Status: improved Disposition: HOME, SELF-CARE Condition: Improved Scripts Ibuprofen* (MOTRIN*) 600 Mg Tablet 600 MG ORAL Q8H PRN for For Pain, #20 TAB 0 Refills Prov: Karla Guy DO 05/07/19 Methylprednisolone (Methylprednisolone*) 4MG Dspk 4 MG ORAL DIRECTED for 6 Days, #21 EA 0 Refills Day 1: Two tablets before breakfast, one after lunch, one after dinner, and two at bedtime. If started late in the day, take all six tablets at once or divide into two or three doses, unless otherwise directed by prescriber. Day 2: One tablet before breakfast, one after lunch, one after dinner, and two at bedtime Day 3: One tablet before breakfast, one after lunch, one after dinner, and one at bedtime Day 4: One tablet before breakfast, one after lunch, and one at bedtime Day 5: One tablet before breakfast and one at bedtime Day 6: One tablet before breakfast Prov: Karla Guy DO 05/07/19 Albuterol Sulfate* (ALBUTEROL SULFATE MDI*) 8.5 Gm Hfa.aer.ad 2 PUFF INH Q4H PRN for cough/wheezing, #1 EA 0 Refills Prov: Karla Guy DO 05/07/19 Additional Instructions: Patient is provided with the discharge instructions notified to follow up with primary doctor in the next 2-3 days otherwise return to the er with any worsening symptoms. Please note that this report is being documented using [employer] technology. This can lead to erroneous entry secondary to incorrect interpretation by the dictating instrument. Karla Guy DO May 07, 2019 08:07
[2019-05-07] MEDS ORDERED: Ketorolac 30mg Inj IV ONE (08:15)
[2019-05-07] MEDS ORDERED: LORazepam 1mg tab ORAL ONE (08:15)
[2019-05-07 08:41] LABS: BASOPHILS % (AUTO) 0.4 % (0.0-2.0); EOSINOPHILS % (AUTO) 0.2 % (0.0-3.0); HEMATOCRIT 46.7 % (42.0-52.0); HEMOGLOBIN 16.3 G/DL (14.2-18.0); LYMPHOCYTES % (AUTO) 11.1 % (20.0-45.0); MEAN CORPUSCULAR VOLUME 86 FL (80-99); MONOCYTES % (AUTO) 4.4 % (1.0-10.0); NEUTROPHILS % (AUTO) 83.9 % (45.0-75.0); PLATELET COUNT 369 K/UL (150-450); RED BLOOD COUNT 5.42 M/UL (4.70-6.10); RED CELL DISTRIBUTION WIDTH 12.3 % (11.6-14.8); WHITE BLOOD COUNT 16.5 K/UL (4.8-10.8)
[2019-05-07 08:50] LABS: ANION GAP 14 mmol/L (5-15); BLOOD UREA NITROGEN 21 mg/dL (7-18); CALCIUM 9.8 MG/DL (8.5-10.1); CARBON DIOXIDE 25 MMOL/L (21-32); CHLORIDE 101 MMOL/L (98-107); CREATININE 1.1 MG/DL (0.55-1.30); POTASSIUM 3.7 MMOL/L (3.5-5.1); SODIUM 140 MMOL/L (136-145)
[2019-05-07 09:18] VITALS: BP 127/89
[2019-05-07 09:26] VITALS: BP 158/101
--- NOTE | 2019-05-07 09:50 | NUR ---
ED Nurse Note: PT calm, sleeping, no S/S of anxiety/SOB, will continue to monitor.
[2019-05-07] MEDS ORDERED: ALBUTEROL SULF8.5 GM INH (09:52)
[2019-05-07] MEDS ORDERED: MEDROL DOSEPAK4 MG ORAL (09:52)
[2019-05-07] MEDS ORDERED: IBUPROFEN600 MG ORAL (09:52)
[2019-05-07 10:11] VITALS: BP 131/86
--- NOTE | 2019-05-07 10:51 | Diagnostic Imaging Report ---
Indication: Shortness of breath Technique: One view of the chest Comparison: 12/15/2018 Findings: The lungs and pleural spaces are clear. The heart size is normal. There is no significant interim change Impression: Negative
[2019-05-07 10:57] VITALS: BP 131/86
== END 2019-05-07 11:00 | disposition home or self-care (01) ==
LOC: EDBD 07:50 → EMR 08:29
DX: R07.9 Chest pain, unspecified (principal)
CPT/HCPCS: 36415; 71045; 80048; 84484; 85025; 93005; 96361; 96374; 99284; J1885; J7030

== ENCOUNTER 2019-05-07 13:02 | Emergency (ER) | payer OTHER ==
[~2019-05-07] VITALS: Ht 177.8 cm; Wt 74.8 kg
[~2019-05-07 13:02] MED LIST changes: +ALBUTEROL SULF8.5 GM INH; +IBUPROFEN600 MG ORAL; +MEDROL DOSEPAK4 MG ORAL
--- NOTE | 2019-05-07 13:10 | NUR ---
ED Nurse Note: Pt brought into ED by [facility]. Ambulance states he lives in alf house. Pt was discharged from ED 15 minutes ago, but only made it acorss the street and had severe abdominal pain and had to come back to ED. Pt is alert and orientedx3, ambulatory. Pt is weak and guarding stomach. Abdominal sounds are hypoactive. Pt is set up on monitor.
[2019-05-07] MEDS ORDERED: LORazepam Inj 2mg/ml 1ml IV ONE (13:15)
[2019-05-07] MEDS ORDERED: Albuterol/Ipratropium 3ml neb HHN ONE (13:15)
--- NOTE | 2019-05-07 13:20 | Emergency Room Report ---
History of Present Illness General Chief Complaint: Pain Source: Patient (Karla Guy ) Present Illness HPI Patient has been seen and dispositioned several hours ago today by myself was reported to be sitting on the street and was brought back by paramedics Patient reports That he became increasingly nauseated and vomited Also continues to complain of left-sided pain including the left shoulder flank and left lower extremity Patient reports that he needs ' pain management' Denies any recent travel Denies any other trauma Patient also has history of emphysema and COPD and complained of some mild shortness of breath however improved from previous visit (Karla Guy DO) Allergies: Coded Allergies: No Known Allergies (Unverified , 06/24/15) Patient History Past Medical History: see triage record Reviewed Nursing Documentation: PMH: Agreed; PSxH: Agreed (Karla Guy DO) Nursing Documentation-PMH Past Medical History: No History, Except For Hx Cardiac Problems: Yes (Karla Guy DO) Review of Systems All Other Systems: negative except mentioned in HPI (Karla Guy DO) Physical Exam Vital Signs Date Time Temp Pulse Resp B/P (MAP) Pulse Ox O2 Delivery O2 Flow Rate FiO2 05/07/19 13:05 98.2 86 17 116/72 (87) 98 Room Air Sp02 EP Interpretation: reviewed, normal General Appearance: other - Anxious Head: normocephalic, atraumatic Eyes: bilateral eye PERRL, bilateral eye EOMI ENT: EOM grossly intact Neck: supple Respiratory: lungs clear, no respiratory distress, no retraction Cardiovascular #1: regular rate, rhythm Gastrointestinal: non tender, soft Genitourinary: no CVA tenderness Musculoskeletal: normal inspection Neurologic: alert, oriented x3 Skin: no rash Lymphatic: normal inspection, no adenopathy (Karla Guy DO) Medical Decision Making Diagnostic Impression: Primary Impression: Small bowel obstruction ER Course Patient's initial presentation had been shortness of breath Upon disposition patient reports that he has become increasingly nauseated Had epigastric discomfort and vomiting as well On this examination CT imaging was obtained which showed some concern for early signs of small bowel obstruction Patient has NG tube placed and requires further inpatient care Secondary to insurance purposes patient required transfer to another facility cbc: [id number] Chemistry: Normal levels Labs Test 05/07/19 13:42 Arterial Blood pH 7.401 (7.350-7.450) Arterial Blood Partial Pressure CO2 41.9 mmHg (35.0-45.0) Arterial Blood Partial Pressure O2 59.9 mmHg (75.0-100.0) Arterial Blood HCO3 25.4 mmol/L (22.0-26.0) Arterial Blood Oxygen Saturation 90.7 % (95-100) Arterial Blood Base Excess 0.5 (-2-2) Kendall Test Positive (Karla Guy DO) Rhythm Strip Diag. Results EP Interpretation: yes Rate: 88 Rhythm: NSR, no PVC's, no ectopy (Karla Guy DO) CT/MRI/US Diagnostic Results CT/MRI/US Diagnostic Results : Impression CT abdomen pelvis Impression: Limited assessment of the GI tract, due to lack of enteric contrast administration There is a segment of mid abdominal small bowel which is dilated, fluid-filled, with transition point at both ends. This raises concern for small bowel obstruction. This could also be due to enteritis Gastric distention with fluid. This most likely just indicates recent fluid ingestion, but there is suggestion of early mild wall thickening of the pylorus and duodenum, and the possibility of at least partial gastric outlet obstruction should be considered. Thick-walled proximal jejunum, could likewise indicate enteritis changes. Small amount of ascites fluid present Infiltration of the perigastric and anterior mesenteric fat. Probably related to what ever process is causing ascites, but inflammation related to the above findings could also be a potential source of this Small bilateral inguinal hernias, do not appear to contain bowel COPD changes seen within the right middle lobe and lingula Evidence of prior cholecystectomy Colonic diverticulosis (Karla Guy DO) Last Vital Signs Date Time Temp Pulse Resp B/P (MAP) Pulse Ox O2 Delivery O2 Flow Rate FiO2 05/07/19 13:05 98.2 86 17 116/72 (87) 98 Room Air Status: improved (Karla Guy DO) Reevaluation Time: 16:58 Reevaluation Impression Patient excepted to [facility] for further treatment of SBO. He is tolerating NG tube well. Repeat labs unremarkable. Transfer for further care. The patient is stable for transfer. (Glen Landrum MD) Disposition: [facility] Condition: Stable Karla Guy DO May 07, 2019 13:20 Glen Landrum MD May 07, 2019 16:58
[2019-05-07 13:25] VITALS: BP 118/70
--- NOTE | 2019-05-07 14:43 | Diagnostic Imaging Report ---
Indication: Left-sided flank pain Technique: Spiral acquisitions obtained through the abdomen and pelvis. No oral contrast utilized, per emergency room physician request No IV contrast utilized, per referring physician request.. Multiplanar reconstructions were generated. Total dose length product 521 mGycm. CTDIvol(s) no mGy. Dose reduction achieved using automated exposure control Comparison: 11/12/2011 Findings: The stomach is distended with fluid. No definite pyloric mass, although there is some wall thickening of the pylorus as well as infiltration of the peripyloric fat.. The duodenum is somewhat prominent, fluid-filled, demonstrate mild wall thickening. There is equivocal mild wall thickening of the proximal jejunum. There are dilated fluid-filled loops of mid small bowel. There are 2 transition points, one of which is in the right lower quadrant, images 85 through 90, and the other is in the anterior mid abdomen, images 105 through 110. These transition points are remote from one another, so probably do not reflect a closed loop obstruction. It is uncertain which is the afferent transition point and which is the efferent transition point. There is also some infiltration of the anterior mesenteric fat. There is a small amount of free intraperitoneal fluid over the dome of the liver as well as in the pelvis. There is a small right inguinal hernia, not evident previously. This appears to contain some soft tissue attenuation structure but probably does not contain any small bowel. There is also a small left inguinal hernia that contains only fat. There are colonic diverticula. No evidence of diverticulitis. The appendix is normal. Lack of IV contrast limits assessment of the solid organs. The gallbladder has been removed. The liver, bile ducts, pancreas, spleen, adrenals, kidneys are unremarkable. No retroperitoneal or mesenteric mass or adenopathy. No pelvic mass or adenopathy. The included lung bases demonstrate some atelectatic changes. Small cystic spaces are seen in the medial right middle lobe and in the lingula. This is new since previous exam. The bones are unremarkable. Impression: Limited assessment of the GI tract, due to lack of enteric contrast administration There is a segment of mid abdominal small bowel which is dilated, fluid-filled, with transition point at both ends. This raises concern for small bowel obstruction. This could also be due to enteritis Gastric distention with fluid. This most likely just indicates recent fluid ingestion, but there is suggestion of early mild wall thickening of the pylorus and duodenum, and the possibility of at least partial gastric outlet obstruction should be considered. Thick-walled proximal jejunum, could likewise indicate enteritis changes. Small amount of ascites fluid present Infiltration of the perigastric and anterior mesenteric fat. Probably related to what ever process is causing ascites, but inflammation related to the above findings could also be a potential source of this Small bilateral inguinal hernias, do not appear to contain bowel COPD changes seen within the right middle lobe and lingula Evidence of prior cholecystectomy Colonic diverticulosis Findings previously discussed by phone with Dr. Guy in the emergency room The CT scanner at [facility] is accredited by the [employer] and the scans are performed using protocols designed to limit radiation exposure to as low as reasonably achievable to attain images of sufficient resolution adequate for diagnostic evaluation.
--- NOTE | 2019-05-07 15:00 | NUR ---
HAND-OFF: Report given to Jairon TROTTER.
--- NOTE | 2019-05-07 16:29 | Diagnostic Imaging Report ---
Indication: Post nasogastric tube placement Technique: Supine view of the upper abdomen Comparison: 09/21/2018 Findings: Interim placement of a nasogastric tube, tip of which projects at the level of the gastric fundus, proximal port well beyond the gastroesophageal junction. Bowel gas pattern is unremarkable. No masses or unusual calcifications. There are cholecystectomy clips. Impression: Satisfactory placement of nasogastric tube No acute process
--- NOTE | 2019-05-07 17:14 | NUR ---
report given to hiram in [facility] patient will be transferd to [facility] via [facility]
[2019-05-07 17:30] VITALS: BP 120/70
== END 2019-05-07 17:33 | disposition short-term general hospital (02) ==
LOC: EDBD 13:02 → EMR 15:28
DX: K56.609 Unspecified intestinal obstruction, unspecified as to partial versus complete obstruction (principal); J44.9 Chronic obstructive pulmonary disease, unspecified
CPT/HCPCS: 36600; 74018; 74176; 82803; 96361; 96374; 96375; 99285; J2405; J7030; J7620

== ENCOUNTER 2020-01-18 11:42 | Inpatient (IN) | payer OTHER, MEDICAID ==
[2020-01-18] VITALS (7 sets, daily range): BP systolic 136–163; BP diastolic 80–101
[~2020-01-18] VITALS: Ht 172.7 cm; Wt 79.3 kg
--- NOTE | 2020-01-18 11:58 | NUR ---
ED Nurse Note:pt. was BIBA from home with general weakness and possible substance obuse, he is A/Ox3 VSS, no c/o pain
[2020-01-18] MEDS ORDERED: Albuterol ud Inhalation HHN ONE (12:30)
[2020-01-18] MEDS ORDERED: Ipratropium 0.02% Inh Soln 2.5ml UD HHN ONE (12:30)
--- NOTE | 2020-01-18 12:54 | NUR ---
ED Nurse Note:covid swab sent to labs, pt. had head CT done
[2020-01-18 13:11] LABS: BASOPHILS % (AUTO) 0.8 % (0.0-2.0); HEMATOCRIT 52.9 % (42.0-52.0); HEMOGLOBIN 17.5 G/DL (14.2-18.0); LYMPHOCYTES % (AUTO) 17.1 % (20.0-45.0); MEAN CORPUSCULAR VOLUME 89 FL (80-99); MONOCYTES % (AUTO) 9.3 % (1.0-10.0); NEUTROPHILS % (AUTO) 71.8 % (45.0-75.0); PLATELET COUNT 367 K/UL (150-450); RED BLOOD COUNT 5.91 M/UL (4.70-6.10); RED CELL DISTRIBUTION WIDTH 13.5 % (11.6-14.8); WHITE BLOOD COUNT 12.8 K/UL (4.8-10.8)
--- NOTE | 2020-01-18 13:15 | Diagnostic Imaging Report ---
Indication: Abdominal pain Technique: Spiral acquisitions obtained through the abdomen and pelvis. No oral contrast utilized, per emergency room physician request No IV contrast utilized, per referring physician request.. Multiplanar reconstructions were generated. Total dose length product 427 mGycm. CTDIvol(s) 8 mGy. Dose reduction achieved using automated exposure control Comparison: 05/07/2019 Findings: Lack of enteric contrast limits assessment of the GI tract. The appendix is normal. There is colonic diverticulosis. No evidence of diverticulitis. There is a small sliding-type hiatal hernia. A focally distended small bowel loop is seen in the abdominal midline just deep to the umbilicus. This is fluid-filled. No abrupt transition demonstrated. On the prior exam, small bowel loops were dilated, over a greater distance than on the current study but overall less markedly dilated. The proximal jejunum is equivocally mildly thick-walled. No free or loculated intraperitoneal gas or fluid is evident. There are small bilateral inguinal hernias that contain only fat. There is a small ventral hernia contains only fat. The included lung bases demonstrate some centrilobular emphysematous changes. The bones are unremarkable. Lack of IV contrast limits assessment of the solid organs. The gallbladder has been removed. Previously demonstrated perihepatic fluid and hazy melina hepatis opacity has resolved. A few prominent nodes are seen in the melina hepatis. No biliary ductal dilatation. The pancreas, spleen, adrenals, kidneys are all unremarkable. No pelvic mass or adenopathy. Impression: Limited assessment of the GI tract, due to lack of enteric contrast administration Focally dilated mid abdominal small bowel, probably proximal jejunum, etiology significance uncertain. Note prior study suggest a small bowel obstruction. Findings could therefore represent mild small bowel obstruction, and correlation with clinical findings and follow-up radiographs is recommended. Equivocally minimally thick-walled jejunal loops, if real could indicate enteritis changes. Colonic diverticulosis. No evidence of diverticulitis. Note that inflammatory change previously demonstrated in the melina hepatis has largely resolved. Nonspecific prominent lymph nodes in the melina hepatis Prior cholecystectomy. Pulmonary basilar centrilobular emphysematous changes Incidental findings as noted, including bilateral fat-containing inguinal hernias, fat-containing ventral hernia Findings discussed by phone with Dr. Melendrez in the emergency room at the time of interpretation The CT scanner at [facility] is accredited by the [employer] and the scans are performed using protocols designed to limit radiation exposure to as low as reasonably achievable to attain images of sufficient resolution adequate for diagnostic evaluation.
[2020-01-18] MEDS ORDERED: Morphine Sulfate 4mg/ml Inj (IV USE ONLY) IVP ONE ×3 (13:45→19:15)
[2020-01-18 13:50] LABS: ANION GAP 11 mmol/L (5-15); BLOOD UREA NITROGEN 23 mg/dL (7-18); CALCIUM 9.3 MG/DL (8.5-10.1); CARBON DIOXIDE 27 MMOL/L (21-32); CHLORIDE 98 MMOL/L (98-107); CREATININE 1.2 MG/DL (0.55-1.30); POTASSIUM 4.3 MMOL/L (3.5-5.1); SODIUM 136 MMOL/L (136-145)
--- NOTE | 2020-01-18 14:00 | NUR ---
ED Nurse Note:pt. c/o abdominal pain was given pain meds
[2020-01-18 14:03] LABS: ALANINE AMINOTRANSFERASE 22 U/L (12-78); ALBUMIN 3.8 G/DL (3.4-5.0); ALBUMIN/GLOBULIN RATIO 0.9 (1.0-2.7); ALKALINE PHOSPHATASE 140 U/L (46-116); ASPARTATE AMINO TRANSFERASE 14 U/L (15-37); BILIRUBIN,TOTAL 0.3 MG/DL (0.2-1.0)
[2020-01-18] MEDS ORDERED: Solu-MEDROL 125mg Inj IVP ONE (15:15)
[2020-01-18] MEDS ORDERED: Azithromycin 500 MG in NS 275 ML IV ONE (15:15)
--- NOTE | 2020-01-18 15:35 | Emergency Room Report ---
History of Present Illness General Chief Complaint: General Complaint Source: Patient (Cornelio Melendrez M.D.) Present Illness HPI Disclaimer: Please note that this report is being documented using [employer] technology. This can lead to erroneous entry secondary to incorrect in terpretation by the dictating instrument. HPI: 59-year-old male presents for multiple complaints. He reports shortness of breath cough with epigastric abdominal pain. Symptoms present for the past couple days. Associated nausea vomiting and diarrhea. No fevers. No sick contacts. Patient had recent intra-abdominal surgery this year for a perforated ulcer. Also has a history of a cholecystectomy. He denies any urinary complaints. Does report 10 out of 10 abdominal pain. He is an active smoker has a history of COPD and reports wheezing mildly productive cough. (Cornelio Melendrez M.D.) Allergies: Coded Allergies: No Known Allergies (Unverified , 06/24/15) COVID-19 Screening Contact w/high risk pt: No Experienced COVID-19 symptoms?: No COVID-19 Testing performed COMPUTER HARDWARE DEVELOPER: No (Cornelio Melendrez M.D.) Patient History Reviewed Nursing Documentation: PMH: Agreed; PSxH: Agreed (Cornelio Melendrez M.D.) Nursing Documentation-PMH Past Medical History: No History, Except For Hx Hypertension: Yes - ASTHMA History Of Psychiatric Problem: Yes (Cornelio Melendrez M.D.) Review of Systems All Other Systems: negative except mentioned in HPI (Cornelio Melendrez M.D.) Physical Exam Vital Signs Date Time Temp Pulse Resp B/P (MAP) Pulse Ox O2 Delivery O2 Flow Rate FiO2 01/18/20 11:42 98.2 80 20 136/91 (106) 98 Room Air 01/18/20 13:47 21 Sp02 EP Interpretation: reviewed, normal General Appearance: well appearing, no apparent distress Head: normocephalic, atraumatic Eyes: bilateral eye PERRL, bilateral eye EOMI ENT: hearing grossly normal, moist mucus membranes Neck: full range of motion, supple Respiratory: no rhonchi, no respiratory distress, no retraction, other - Bilateral wheezing noted, no retractions no respiratory distress speaking in full sentences Cardiovascular #1: normal peripheral pulses, regular rate, rhythm, no murmur Gastrointestinal: no guarding, other - Mildly distended diffuse tenderness noted, no rebound or guarding Neurologic: alert, oriented x3, no focal defects Skin: normal color, warm/dry (Cornelio Melendrez M.D.) Medical Decision Making Diagnostic Impression: Primary Impression: COPD exacerbation Additional Impression: Small bowel obstruction ER Course MDM: Differential included but not limited to small bowel obstruction gastroenteritis, gastritis, ulcer, COPD exacerbation, pneumonia, COVID-19 Clinical course-IV, IV fluids, chest x-ray, CT scan of the abdomen pelvis ordered. Patient did have wheezing noted on my exam so breathing treatment ordered Solu-Medrol ordered IV antibiotics were given. CT scan of the abdomen pelvis did demonstrate evidence of a possible partial small bowel obstruction. Patient has a history of similar and was transferred to outside facility in the past year for the same. Multiple doses of pain control given. Due to patient's small bowel obstruction will require admission to the hospital. Labs - Laboratory Tests Test 01/18/20 12:50 White Blood Count 12.8 K/UL (4.8-10.8) H Red Blood Count 5.91 M/UL (4.70-6.10) Hemoglobin 17.5 G/DL (14.2-18.0) Hematocrit 52.9 % (42.0-52.0) H Mean Corpuscular Volume 89 FL (80-99) Mean Corpuscular Hemoglobin 29.6 PG (27.0-31.0) Mean Corpuscular Hemoglobin Concent 33.1 G/DL (32.0-36.0) Red Cell Distribution Width 13.5 % (11.6-14.8) Platelet Count 367 K/UL (150-450) Mean Platelet Volume 5.9 FL (6.5-10.1) L Neutrophils (%) (Auto) 71.8 % (45.0-75.0) Lymphocytes (%) (Auto) 17.1 % (20.0-45.0) L Monocytes (%) (Auto) 9.3 % (1.0-10.0) Eosinophils (%) (Auto) 1.0 % (0.0-3.0) Basophils (%) (Auto) 0.8 % (0.0-2.0) Sodium Level 136 MMOL/L (136-145) Potassium Level 4.3 MMOL/L (3.5-5.1) Chloride Level 98 MMOL/L (98-107) Carbon Dioxide Level 27 MMOL/L (21-32) Anion Gap 11 mmol/L (5-15) Blood Urea Nitrogen 23 mg/dL (7-18) H Creatinine 1.2 MG/DL (0.55-1.30) Estimated Glomerular Filtration Rate > 60 mL/min (>60) Glucose Level 106 MG/DL (74-106) Calcium Level 9.3 MG/DL (8.5-10.1) Total Bilirubin 0.3 MG/DL (0.2-1.0) Aspartate Amino Transferase (AST) 14 U/L (15-37) L Alanine Aminotransferase (ALT) 22 U/L (12-78) Alkaline Phosphatase 140 U/L (46-116) H Troponin I 0.000 ng/mL (0.000-0.056) Pro-B-Type Natriuretic Peptide 54 pg/mL (0-125) Total Protein 8.2 G/DL (6.4-8.2) Albumin 3.8 G/DL (3.4-5.0) Globulin 4.4 g/dL Albumin/Globulin Ratio 0.9 (1.0-2.7) L Lipase 93 U/L (73-393) Microbiology Date/Time Source Procedure Growth Status 01/18/20 12:30 Nasopharynx SARS-CoV-2 RdRp Gene Assay - Final Complete On reevaluation: Pain improved Plan- (Cornelio Melendrez M.D.) ER Course Patient was signed out to me by the previous physician. He has remained hemodynamically stable and neurovascularly intact in the emergency department in no acute distress. I spoke with Dr. Marie at [facility] who accepted the admission for [facility] full admission. 1730: assistant front desk manager called back and said the patient was approved for admission here. Admitting physician was Dr. Benites. He accepted the patient and I informed gen surgeon Dr. Pozo. (Omer Chambers M.D.) EKG Diagnostic Results Rate: normal Rhythm: NSR ST Segments: no acute changes Other Impression Left axis deviation (Cornelio Melendrez M.D.) Last Vital Signs Date Time Temp Pulse Resp B/P (MAP) Pulse Ox O2 Delivery O2 Flow Rate FiO2 01/18/20 15:03 98.6 76 17 148/88 96 Room Air 01/18/20 13:47 21 Status: improved (Cornelio Melendrez M.D.) Referrals: NON PHYSICIAN (PCP) Cornelio Melendrez M.D. Jan 18, 2020 15:35 Omer Chabmers M.D. Jan 18, 2020 16:27
--- NOTE | 2020-01-18 17:30 | Diagnostic Imaging Report ---
Indication: Shortness of breath Technique: One view of the chest Comparison: none Findings: Lungs and pleural spaces are clear. Heart size is normal. No significant change Impression: No acute process
[2020-01-18] MEDS ORDERED: LISINOPRIL5 MG ORAL (18:57)
[2020-01-18] MEDS ORDERED: WIXELA 250-501 EACH IH (18:57)
[2020-01-18] MEDS ORDERED: ATROVENT HFA12.9 GM IH (18:57)
[2020-01-18] MEDS ORDERED: AMLODIPINE BESY10 MG ORAL (18:57)
--- NOTE | 2020-01-18 19:07 | NUR ---
ED Nurse Note:urine sent to labs
[2020-01-18 19:20] LABS: APPEARANCE,URINE CLEAR; BILIRUBIN, URINE NEGATIVE (NEGATIVE); COLOR,URINE PALE YELLOW; GLUCOSE, URINE (UA) NEGATIVE (NEGATIVE); KETONES,URINE 1+ (NEGATIVE); LEUKOCYTE ESTERASE ,URINE NEGATIVE (NEGATIVE); NITRITE,URINE NEGATIVE (NEGATIVE); PH,URINE 6 (4.5-8.0); PROTEIN,URINE 2+ (NEGATIVE); UROBILINOGEN,URINE NORMAL MG/DL (0.0-1.0)
--- NOTE | 2020-01-18 21:10 | NUR ---
TRANSFER TO FLOOR: Patient transferred to as ordered, per Dr Benites. Report given to ROSE MARIE Reyes. Belongings and medications given to . Family and or S/O informed of transfer.
--- NOTE | 2020-01-18 21:48 | NUR ---
NURSE NOTES: Received report from ROSE MARIE Dias ED. Pt arrived @ 2114 [facility]. Vitals 163/101, 91%, 85HR, 97.7F. ABD pain 7/10 noted. Pt has cole $100 and wants to keep with pt. All belongings reviewed. Home meds sent to the pharmacy @ ED. Orientation given to the room. Called Dr. Benites for admission order. Swabs done @ ED. Bed locked, lowest position, alarm on, side rails up, call light within reach. Will continue to monitor.
[2020-01-18] MEDS: D5NS 1,000 ML IV SCH (22:48)
[2020-01-18] MEDS: HYDROmorphone 1mg/ml Carpuject IVP PRN (22:48)
--- NOTE | 2020-01-18 23:10 | NUR ---
NURSE NOTES: Patient's nurse, ROSE MARIE Weston notified Dr Benites that Hydralizine cannot be given via IV on med surg. Physician requested patient to be transferred to telemetry. major appliance assembly supervisor notified.
--- NOTE | 2020-01-18 23:46 | NUR ---
NURSE NOTES: Received admission orders. Order entered and carried out except Hydralazine 5mg IVP Q6hr prn SBP >160, DBP >100.
--- NOTE | 2020-01-18 23:56 | NUR ---
NURSE NOTES: Left message Boris Abdul [phone] as NOK regarding transfer to tele.
[2020-01-19] VITALS: BP 122/79
--- NOTE | 2020-01-19 | NUR ---
NURSE NOTES: Patient received from ROSE MARIE Weston. Patient is awake and alert oriented x 4. Patient is on NPO per doctor order. No signs of acute distress as of right now and no complaints. Patient is on room air satting at 93%. Patient has a left AC 20 gauge, patent and flushed. Bed is in the lowest position, call light within reach. Belongings discussed with patient and nurse. Will continue to monitor.
--- NOTE | 2020-01-19 00:23 | NUR ---
NURSE HAND-OFF: Important Events on Shift:admission and transfer to [facility], abd pain, HTN Patient Status: in pain Diet: strict NPO Pending Orders: N Pending Results/Labs:AM labs Pending MD notification:N Latest Vital Signs: Temperature 97.7 , Pulse 71 , B/P 145 /89 , Respiratory Rate 17 , O2 SAT 91 , Room Air, O2 Flow Rate . Vital Sign Comment: [] Latest Camacho Fall Score: 35 Fall Risk: Medium Risk Safety Measures: Call light Within Reach, Bed Alarm Zone 1, Side Rails Side Rails x2, Bed position Low and Locked. Fall Precautions: Yellow Socks Patient Fall Education Report given to [JacklynRN].
[2020-01-19 04:00] VITALS: BP 141/83
[2020-01-19 07:06] LABS: BASOPHILS % (AUTO) 0.4 % (0.0-2.0); HEMATOCRIT 53.4 % (42.0-52.0); HEMOGLOBIN 17.1 G/DL (14.2-18.0); LYMPHOCYTES % (AUTO) 12.5 % (20.0-45.0); MEAN CORPUSCULAR VOLUME 93 FL (80-99); MONOCYTES % (AUTO) 5.5 % (1.0-10.0); NEUTROPHILS % (AUTO) 81.6 % (45.0-75.0); PLATELET COUNT 386 K/UL (150-450); RED BLOOD COUNT 5.76 M/UL (4.70-6.10); RED CELL DISTRIBUTION WIDTH 13.2 % (11.6-14.8); WHITE BLOOD COUNT 10.1 K/UL (4.8-10.8)
[2020-01-19 07:23] LABS: BLOOD UREA NITROGEN 17 mg/dL (7-18); CARBON DIOXIDE 28 MMOL/L (21-32); CHLORIDE 101 MMOL/L (98-107); CREATININE 1.2 MG/DL (0.55-1.30); POTASSIUM 5.2 MMOL/L (3.5-5.1); SODIUM 136 MMOL/L (136-145)
--- NOTE | 2020-01-19 07:25 | NUR ---
NURSE HAND-OFF REPORT: Important Events on Shift:[] Patient Status: [Stable] Diet: [Strict NPO] Pending Orders: [] Pending Results/Labs:[] Pending MD notification:[] Latest Vital Signs: Temperature 97.5 , Pulse 65 , B/P 141 /83 , Respiratory Rate 20 , O2 SAT 92 , Room Air, O2 Flow Rate . Vital Sign Comment: [] EKG Rhythm: Sinus Rhythm w/ 1st degree HB Rhythm change?: N MD Notified?: - MD Response: Latest Camacho Fall Score: 35 Fall Risk: Medium Risk Safety Measures: Call light Within Reach, Bed Alarm Zone 1, Side Rails Side Rails x2, Bed position Low and Locked. Fall Precautions: Yellow Socks Patient Fall Education Report given to [ROSE MARIE Hamlin].
--- NOTE | 2020-01-19 07:32 | NUR ---
NURSE NOTES: Received report from Jacklyn RN. Pt is stable and resting in bed. Pt appears fatigued and in pain. pain assessment reveals Pt pain in abd, 7/10 non radiating. pain medication to be given. Pt on RA w/ no s/s or complaint of distress at this time. pt NPO, verbalized understanding. Pt bed low and locked, call light in reach, and bed alarm on. Pt verbalized understanding to call for help. IV on LAC20g running fluids at 75, asymptomatic and intact.
[2020-01-19 08:00] VITALS: BP 140/80
--- NOTE | 2020-01-19 10:25 | Consultation ---
History of Present Illness General Date patient seen: Jan 19, 2020 Reason for Hospitalization: General Complaint Present Illness HPI This is a 59-year-old male who presents [facility] with multiple complaints shortness of breath discomfort epigastric abdominal pain identified on CT to have dilated bowel loops surgery called to evaluate assist with care patient seen, patient evaluate, chart reviewed. Patient with history of similar complaints states that and in the past he was at [facility] for a hole in his intestines and was operated on therefore has a midline incision. Does not recall who operated on the exact reason for it. Currently no nausea vomiting fever chills. Allergies: Coded Allergies: No Known Allergies (Unverified , 06/24/15) COVID-19 Screening Contact w/high risk pt: No Experienced COVID-19 symptoms?: No Medication History Scheduled Albuterol Sulfate (Ventolin Hfa), 1 PUFF INH EVERY 6 HOURS, (Reported) Amlodipine Besylate* (Amlodipine Besylate*), 10 MG ORAL DAILY, (Reported) Fluticasone/Salmeterol (Advair Hfa 115-21 Mcg Inhaler), 2 PUFFS INH EVERY 12 HOURS, (Reported) Lisinopril (Lisinopril*), 5 MG ORAL DAILY, (Reported) Methylprednisolone (Methylprednisolone*), 4 MG ORAL DIRECTED Roflumilast (Daliresp), 500 MCG PO DAILY, (Reported) Sertraline Hcl* (Zoloft*), 100 MG ORAL DAILY, (Reported) Simvastatin (Zocor), 20 MG ORAL BEDTIME, (Reported) Scheduled PRN Albuterol Sulfate* (Albuterol Sulfate Mdi*), 2 PUFF INH Q4H PRN for cough/wheezing Ibuprofen (Motrin), 600 MG ORAL Q8H PRN for For Pain Ondansetron Odt* (Zofran Odt*), 4 MG BC EVERY 6 HOURS PRN for Nausea & Vomiting Miscellaneous Medications Fluticasone Propion/Salmeterol (Wixela 250-50 Inhub), 1 EACH IH, (Reported) Ipratropium [place] (Atrovent Hfa), 12.9 GM IH, (Reported) Patient History History Provided By: Patient, Medical Record, PMD Healthcare decision maker Resuscitation status Advanced Directive on File Past Medical/Surgical History Past Medical/Surgical History: (1) COPD exacerbation (2) Encounter for generalized patient complaints (3) Dehydration (4) Hemoptysis (5) Cough (6) Gastritis (7) Leukocytosis (8) Renal insufficiency (9) Viral syndrome (10) Spine fracture (11) Small bowel obstruction (12) Nausea and vomiting (13) Abdominal pain (14) Chest pain (15) UGI bleed (16) Chronic back pain (17) Acute head injury (18) Abdominal pain, vomiting, and diarrhea Review of Systems Review of Symptoms General ROS: no weight loss or fever Psychological ROS: no depression or mood changes, no memory loss Ophthalmic ROS: no visual changes or eye irritation ENT ROS: no nasal congestion, hearing loss, dizziness Allergy and Immunology ROS: no allergic symptoms or urticaria Hematological and Lymphatic ROS: no swollen glands, unusual bleeding or bruising Endocrine ROS: no polyuria, polydipsia, weight changes, temperature intolerance Respiratory ROS: no cough, shortness of breath, or wheezing Cardiovascular ROS: no chest pain or dyspnea on exertion Gastrointestinal ROS: denies abdominal pain, bright red blood in stool. Musculoskeletal ROS: no myalgias or arthralgias Neurological ROS: no TIA or stroke symptoms Dermatological ROS: no new or changing skin lesions, rashes or pruritis Physical Exam Physical Exam General appearance: alert, cooperative, no distress, appears stated age Head: Normocephalic, without obvious abnormality, atraumatic Eyes: conjunctivae/corneas clear. PERRL, EOM's intact. Fundi benign Throat: Lips, mucosa, and tongue normal. Teeth and gums normal Neck: supple, symmetrical, trachea midline, no adenopathy, thyroid: not enlarged, symmetric, no tenderness/mass/nodules, no carotid bruit and no JVD Lungs: clear to auscultation bilaterally Heart: regular rate and rhythm, S1, S2 normal, no murmur, click, rub or gallop Abdomen: soft, non-tender. Bowel sounds normal. No masses, no organomegaly. prior midline well healed Extremities: extremities normal, atraumatic, no cyanosis or edema Pulses: 2+ and symmetric Skin: Skin color, texture, turgor normal. No rashes or lesions Neurologic: Grossly normal Last 24 Hour Vital Signs Date Time Temp Pulse Resp B/P (MAP) Pulse Ox O2 Delivery O2 Flow Rate FiO2 01/19/20 09:00 Room Air 01/19/20 08:00 96.9 66 20 140/80 (100) 95 01/19/20 08:00 69 01/19/20 04:00 97.5 65 20 141/83 (102) 92 01/19/20 00:00 70 01/19/20 00:00 97.2 82 20 122/79 (93) 92 01/18/20 23:30 71 17 145/89 (107) 01/18/20 23:17 Room Air 01/18/20 23:00 66 156/96 (116) 01/18/20 21:30 97.7 85 24 163/101 (121) 91 01/18/20 21:10 98.6 76 17 148/88 96 Room Air 21 01/18/20 21:00 98.2 70 18 138/80 100 Room Air 21 01/18/20 20:12 98.6 01/18/20 19:15 98.2 72 18 140/80 98 Room Air 01/18/20 16:24 98.6 01/18/20 15:03 98.6 76 17 148/88 96 Room Air 01/18/20 14:07 98.2 01/18/20 13:47 90 21 97 Room Air 21 86 19 93 01/18/20 11:51 98.2 80 20 136/91 98 Room Air 01/18/20 11:51 80 20 Room Air 01/18/20 11:42 98.2 80 20 136/91 (106) 98 Room Air Laboratory Tests Test 01/18/20 12:50 01/18/20 18:40 01/19/20 06:42 White Blood Count 12.8 K/UL (4.8-10.8) H 10.1 K/UL (4.8-10.8) Red Blood Count 5.91 M/UL (4.70-6.10) 5.76 M/UL (4.70-6.10) Hemoglobin 17.5 G/DL (14.2-18.0) 17.1 G/DL (14.2-18.0) Hematocrit 52.9 % (42.0-52.0) H 53.4 % (42.0-52.0) H Mean Corpuscular Volume 89 FL (80-99) 93 FL (80-99) Mean Corpuscular Hemoglobin 29.6 PG (27.0-31.0) 29.7 PG (27.0-31.0) Mean Corpuscular Hemoglobin Concent 33.1 G/DL (32.0-36.0) 32.0 G/DL (32.0-36.0) Red Cell Distribution Width 13.5 % (11.6-14.8) 13.2 % (11.6-14.8) Platelet Count 367 K/UL (150-450) 386 K/UL (150-450) Mean Platelet Volume 5.9 FL (6.5-10.1) L 5.8 FL (6.5-10.1) L Neutrophils (%) (Auto) 71.8 % (45.0-75.0) 81.6 % (45.0-75.0) H Lymphocytes (%) (Auto) 17.1 % (20.0-45.0) L 12.5 % (20.0-45.0) L Monocytes (%) (Auto) 9.3 % (1.0-10.0) 5.5 % (1.0-10.0) Eosinophils (%) (Auto) 1.0 % (0.0-3.0) 0.0 % (0.0-3.0) Basophils (%) (Auto) 0.8 % (0.0-2.0) 0.4 % (0.0-2.0) Sodium Level 136 MMOL/L (136-145) 136 MMOL/L (136-145) Potassium Level 4.3 MMOL/L (3.5-5.1) 5.2 MMOL/L (3.5-5.1) H Chloride Level 98 MMOL/L (98-107) 101 MMOL/L (98-107) Carbon Dioxide Level 27 MMOL/L (21-32) 28 MMOL/L (21-32) Anion Gap 11 mmol/L (5-15) Blood Urea Nitrogen 23 mg/dL (7-18) H 17 mg/dL (7-18) Creatinine 1.2 MG/DL (0.55-1.30) 1.2 MG/DL (0.55-1.30) Estimat Glomerular Filtration Rate > 60 mL/min (>60) > 60 mL/min (>60) Glucose Level 106 MG/DL (74-106) 134 MG/DL (74-106) H Calcium Level 9.3 MG/DL (8.5-10.1) 9.0 MG/DL (8.5-10.1) Total Bilirubin 0.3 MG/DL (0.2-1.0) Aspartate Amino Transf (AST/SGOT) 14 U/L (15-37) L Alanine Aminotransferase (ALT/SGPT) 22 U/L (12-78) Alkaline Phosphatase 140 U/L (46-116) H Troponin I 0.000 ng/mL (0.000-0.056) Pro-B-Type Natriuretic Peptide 54 pg/mL (0-125) Total Protein 8.2 G/DL (6.4-8.2) Albumin 3.8 G/DL (3.4-5.0) Globulin 4.4 g/dL Albumin/Globulin Ratio 0.9 (1.0-2.7) L Lipase 93 U/L (73-393) Urine Color Pale yellow Urine Appearance Clear Urine pH 6 (4.5-8.0) Urine Specific Tina 1.015 (1.005-1.035) Urine Protein 2+ (NEGATIVE) H Urine Glucose (UA) Negative (NEGATIVE) Urine Ketones 1+ (NEGATIVE) H Urine Blood Negative (NEGATIVE) Urine Nitrite Negative (NEGATIVE) Urine Bilirubin Negative (NEGATIVE) Urine Urobilinogen Normal MG/DL (0.0-1.0) Urine Leukocyte Esterase Negative (NEGATIVE) Urine RBC 0 /HPF (0 - 0) Urine WBC 0-2 /HPF (0 - 0) Urine Squamous Epithelial Cells None /LPF (NONE/OCC) Urine Bacteria Occasional /HPF (NONE) Microbiology Date/Time Source Procedure Growth Status 01/18/20 12:30 Nasopharynx SARS-CoV-2 RdRp Gene Assay - Final Complete Height (Feet): 5 Height (Inches): 8.00 Weight (Pounds): 160 Medications Current Medications Medications (Trade) Dose Ordered Sig/Camilo Route PRN Reason Start Time Stop Time Status Last Admin Dose Admin Dextrose/Sodium Chloride 1,000 ml @ 75 mls/hr [id number] IV 01/18/20 22:15 02/17/20 22:14 01/18/20 22:48 Hydralazine HCl (Apresoline) 5 mg Q6H PRN IV For High Blood Pressure 01/19/20 01:00 04/18/20 00:59 Hydromorphone HCl (Dilaudid) 0.5 mg Q6H PRN IVP For Pain 01/18/20 22:15 01/25/20 22:14 01/18/20 22:48 Assessment/Plan Problem List: (1) UGI bleed ICD Codes: K92.2 - Gastrointestinal hemorrhage, unspecified SNOMED: 21802539 (2) Dehydration ICD Codes: E86.0 - Dehydration SNOMED: 48242775 (3) Acute head injury ICD Codes: S09.90XA - Unspecified injury of head, initial encounter SNOMED: 70601776, 0253182 (4) Spine fracture SNOMED: 96802338 (5) Hemoptysis ICD Codes: R04.2 - Hemoptysis SNOMED: 19386455 (6) Gastritis ICD Codes: K29.70 - Gastritis, unspecified, without bleeding SNOMED: 5818396 (7) Chronic back pain ICD Codes: M54.9 - Dorsalgia, unspecified; G89.29 - Other chronic pain SNOMED: 625904792 (8) Leukocytosis ICD Codes: D72.829 - Elevated white blood cell count, unspecified SNOMED: 314840392, 631069222 (9) Renal insufficiency ICD Codes: N28.9 - Disorder of kidney and ureter, unspecified SNOMED: 151584918, 611151570 (10) Nausea and vomiting ICD Codes: R11.2 - Nausea with vomiting, unspecified SNOMED: 80431963, 361411097 (11) Abdominal pain Assessment & Plan: 59-year-old male complaining abdominal pain. History of prior abdominal surgery as there is a healing midline abdominal wound identified states that this was done at [facility] for a hole in his intestines. He has been here multiple times in the past and I have seen him before. Currently CT is reviewed and no obstructive signs noted though there is some mildly dilated bowel loops. A upper GI contrast study small bowel follow-through was ordered to ensure no bowel obstruction. Will follow with recommendations thank you for let me participate in patient's care lack of enteric contrast limits assessment of the GI tract. The appendix is normal. There is colonic diverticulosis. No evidence of diverticulitis. There is a small sliding-type hiatal hernia. A focally distended small bowel loop is seen in the abdominal midline just deep to the umbilicus. This is fluid-filled. No abrupt transition demonstrated. On the prior exam, small bowel loops were dilated, over a greater distance than on the current study but overall less markedly dilated. The proximal jejunum is equivocally mildly thick-walled. No free or loculated intraperitoneal gas or fluid is evident. There are small bilateral inguinal hernias that contain only fat. There is a small ventral hernia contains only fat. The included lung bases demonstrate some centrilobular emphysematous changes. The bones are unremarkable. Lack of IV contrast limits assessment of the solid organs. The gallbladder has been removed. Previously demonstrated perihepatic fluid and hazy melina hepatis opacity has resolved. A few prominent nodes are seen in the melina hepatis. No biliary ductal dilatation. The pancreas, spleen, adrenals, kidneys are all unremarkable. No pelvic mass or adenopathy. Impression: Limited assessment of the GI tract, due to lack of enteric contrast administration Focally dilated mid abdominal small bowel, probably proximal jejunum, etiology significance uncertain. Note prior study suggest a small bowel obstruction. Findings could therefore represent mild small bowel obstruction, and correlation with clinical findings and follow-up radiographs is recommended. Equivocally minimally thick-walled jejunal loops, if real could indicate enteritis changes. Colonic diverticulosis. No evidence of diverticulitis. Note that inflammatory change previously demonstrated in the melina hepatis has largely resolved. Nonspecific prominent lymph nodes in the melina hepatis Prior cholecystectomy. Pulmonary basilar centrilobular emphysematous changes Incidental findings as noted, including bilateral fat-containing inguinal hernias, fat-containing ventral hernia ICD Codes: R10.9 - Unspecified abdominal pain SNOMED: 48681009, 974782206 (12) Cough ICD Codes: R05 - Cough; R11.10 - Vomiting, unspecified; R19.7 - Diarrhea, unspecified SNOMED: 92139546, 858768283 (13) Viral syndrome ICD Codes: B34.9 - Viral infection, unspecified SNOMED: 74110742 (14) Abdominal pain, vomiting, and diarrhea ICD Codes: R10.9 - Unspecified abdominal pain; R11.10 - Vomiting, unspecified; R19.7 - Diarrhea, unspecified SNOMED: 19245430, 851618095 (15) Chest pain ICD Codes: R07.9 - Chest pain, unspecified SNOMED: 97382001 (16) COPD exacerbation ICD Codes: J44.1 - Chronic obstructive pulmonary disease with (acute) exacerbation SNOMED: 667568773 (17) Encounter for generalized patient complaints ICD Codes: Z00.8 - Encounter for other general examination SNOMED: 440404868 (18) Small bowel obstruction ICD Codes: K56.609 - Unspecified intestinal obstruction, unspecified as to partial versus complete obstruction SNOMED: 220056966 Titi Pozo Jan 19, 2020 10:25
--- NOTE | 2020-01-19 10:52 | NUR ---
NURSE NOTES: When inserting new IV on R arm. I moved Pts belonging of black bag and heard pills rattle. Notified DEQUAN Robins. Educated Pt that we cannot have personal medication or cigarettes bedside. Pt medication moved to pharmacy, tag in chart at nursing station. Pt cigarettes x 3 packs put in plastic bag with Pt label in top drawer of nursing station, witnessed by DEQUAN Robins of Pt cigarette confiscation. Pt made aware and verbalized understanding. New IV on RFA placed by ROSE MARIE Devi. RFA 22g running fluids at 70cc, asymptomatic and intact. Pt is stable.
--- NOTE | 2020-01-19 11:15 | NUR ---
NURSE NOTES: Pt off tele for small bowel study. pt is stable on RA. IV disconnected. IV on LFA removed, catheter intact, Pt tolerated well.
--- NOTE | 2020-01-19 11:45 | NUR ---
NURSE NOTES: Pt off tele for small bowel study. IV fluids to be administered when Pt returns.
[2020-01-19 11:48] VITALS: BP 136/83
--- NOTE | 2020-01-19 12:30 | History and Physical Report ---
DATE OF ADMISSION: 01/18/2020 HISTORY OF PRESENT ILLNESS: This is a 59-year-old male who was admitted to the hospital with possibility of bowel obstruction. The patient has multiple complaints and is poor historian. He came to hospital with shortness of breath. He also reported epigastric pain. He states he recently had abdominal surgery. He states that the ulcer was because of a perforated ulcer and also had a cholecystectomy. Currently reports significant abdominal pain. PAST MEDICAL HISTORY: History of chronic tobacco usage and COPD. He has also history of psychiatric problems. PAST SURGICAL HISTORY: Laparotomy and cholecystectomy. ALLERGIES: None. HOME MEDICATIONS: Reviewed and reconciled in chart. REVIEW OF SYSTEMS: The patient denies any headaches, hematemesis, melena, hematochezia, or weight loss. PHYSICAL EXAMINATION: GENERAL: Reveals a 59-year-old male. VITAL SIGNS: Blood pressure is 140/80, heart rate 64, respiratory rate 20, O2 saturation 95% on room air. HEENT: Unremarkable. CHEST: Decreased breath sounds bilaterally. ABDOMEN: Soft. There is a midline laparotomy scar. LABORATORY DATA: Lab testing shows normal CBC currently, yesterday white count was 12.8. Chemistries normal except for potassium 5.2, glucose 134. IMAGING STUDIES: The patient underwent a chest x-ray, which shows clear lung argueta bilaterally. He underwent abdominal pelvis CT which showed evidence of centrilobular emphysema. There is bilateral fat containing inguinal hernias and a small ventral hernia with fat, evidence of prior cholecystectomy, colonic diverticulosis. There is a focal dilated mid abdominal small bowel jejunal loop, possibly suggestive of SBO. IMPRESSION: 1. Possible SBO. 2. Previous cholecystectomy. 3. COPD. 4. Abdominal pain. DISCUSSION: Admit to the hospital. Provide pain medications and IV fluids, antiemetics, DVT prophylaxis, breathing treatments, upper gastrointestinal series per Dr. Pozo. 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 Cole Benites M.D. DR: Aurea JOB#: [id number] CC:
--- NOTE | 2020-01-19 12:34 | NUR ---
INSURANCE CLINICALS FAXED TO [employer] [phone]
[2020-01-19] MEDS: D5NS 1,000 ML IV SCH (13:02)
--- NOTE | 2020-01-19 13:08 | NUR ---
RADIOLOGY DEPT., SMALL BOWEL SERIES IS COMPLETED.-P.DYE
--- NOTE | 2020-01-19 13:57 | General Progress Note ---
Advance Care Planning Advance Care Planning Advance Care Planning Date of Discussion: A [id number] discussion with the patient regarding the patient's advanced care planning took place during this hospitalization on the above date. The discussion included the explanation and discussion of advance directives and associated forms/documents, as well as the patient's current code status. We also discussed at length the patient's medical conditions (both acute and chronic), general prognosis, treatment options, and goals of care. The following summarizes the discussion: Advance Care Planning/Goals of Care: - Will attempt to fill out an AD and/or POLST with the patient prior to discharge, if not already completed - Continue current evaluation and management of any acute and chronic medical issues - Will continue to support the patient/family - Will continue to discuss both short- and long-term goals of care DPOA-HC/Surrogate Decision Maker: None currently appointed Code Status: Full Code Advanced Care Planning Forms/Documents Completed: Deferred until later encounter/visit A total of 31 minutes was spent on this discussion, including counseling, answering questions, and completing, if any, pertinent advanced care planning forms/documents. Time of note may not reflect time of encounter. Cole Benites MD Jan 19, 2020 13:57
--- NOTE | 2020-01-19 15:29 | Diagnostic Imaging Report ---
Indication: Abdominal pain, abnormal findings on prior CT scan Technique: Patient ingested water-soluble contrast, and serial overhead films obtained through total number of images is 11. No fluoroscopy was utilized Comparison: 01/18/[address] scan, 05/07/2019 radiograph Findings: [employer] Developer image demonstrates a single prominent small bowel loop in the left upper quadrant. There are cholecystectomy clips. Images taken after ingestion of contrast demonstrate normal caliber small bowel, with normal mucosal pattern. There is brisk transit of contrast, and contrast is seen within the colon at 45 minutes. Contrast is seen throughout the colon and within the rectum after evacuation of one hour Impression: No evidence of small bowel obstruction. Contrast reaches the colon in 45 minutes
--- NOTE | 2020-01-19 15:50 | NUR ---
NURSE NOTES: contacted dr pack regarding Pt need for breathing treatment. awaiting call back Addendum: 01/19/20 at 1820 by Yakelin Purdy RN RN Awaiting call back. Pt is stable, decreased wheezing.
[2020-01-19 15:54] VITALS: BP 153/91
--- NOTE | 2020-01-19 16:20 | NUR ---
CASE MANAGEMENT:REVIEW 59 YR OLD MALE BIBA FROM "[facility]" CC: ABDOMINAL PAIN SI: SMALL BOWEL OBSTRUCTION. COPD 98.2 80 20 136/91 98% ON RA WBC+12.8 IS: DUONEB HHN 1L NS BOLUS IV ZOFRAN IV MORPHINE IV SOLUMEDROL IV AZITHROMYCIN NPO : TO TELEMETRY
[2020-01-19] MEDS: HYDROmorphone 1mg/ml Carpuject IVP PRN ×2 (16:25→20:57)
--- NOTE | 2020-01-19 19:41 | NUR ---
NURSE HAND-OFF REPORT: Important Events on Shift: small bowel xray Patient Status: fc, stable Diet: NPO strict Pending Orders: Pending Results/Labs: Pending MD notification: left message for Dr pack regarding Pt small bowel results, need for breathing Tx Latest Vital Signs: Temperature 97.9 , Pulse 83 , B/P 153 /91 , Respiratory Rate 20 , O2 SAT 96 , Room Air, O2 Flow Rate . Vital Sign Comment: EKG Rhythm: Sinus Rhythm Rhythm change?: N MD Notified?: N - MD Response: Latest Camacho Fall Score: 35 Fall Risk: Medium Risk Safety Measures: Call light Within Reach, Bed Alarm Zone 2, Side Rails Side Rails x2, Bed position Low and Locked. Fall Precautions: Yellow Socks Yellow Gown Door Sign Report given to ROSE MARIE Parry.
--- NOTE | 2020-01-19 19:45 | NUR ---
NURSE NOTES: Got report from Yakelin TROTTER. Pt in stable condition resting in bed comfortably. Upon assessment pt appears weak/fatigued and complaining of abdominal pain. Pt stating 9/10 pain pain meds given. Pt on room air w/ no s/s of distress or SOB. Pt on strict NPO at this, pt verbalizes understanding. Pt is fully oriented weak to ambulate. Pt has L AC 20g w/D5NS @75 patent and intact. Pt bed in low and locked position, call light within reach, bedside table within reach and bed alarm engaged. Continue to monitor.
[2020-01-19 20:00] VITALS: BP_SYST 111; BP_SYST 115; BP_DIAS 75; BP_DIAS 84
[2020-01-19] MEDS: Albuterol/Ipratropium 3ml neb HHN PRN (21:08)
[2020-01-20] VITALS: BP 111/75
[2020-01-20] MEDS: D5NS 1,000 ML IV SCH (00:26)
[2020-01-20] MEDS: HYDROmorphone 1mg/ml Carpuject IVP PRN ×2 (02:08→06:04)
[2020-01-20 04:00] VITALS: BP 110/72
--- NOTE | 2020-01-20 04:06 | Cardiology Report ---
APPROVED REPORT EKG Measurement Heart [id number] <Conclusion> Normal sinus rhythm Left axis deviation Abnormal ECG
[2020-01-20 06:23] LABS: HEMATOCRIT 51.3 % (42.0-52.0); HEMOGLOBIN 16.3 G/DL (14.2-18.0); LYMPHOCYTES % (AUTO) 29.5 % (20.0-45.0); MEAN CORPUSCULAR VOLUME 94 FL (80-99); NEUTROPHILS % (AUTO) 59.4 % (45.0-75.0); PLATELET COUNT 338 K/UL (150-450); RED BLOOD COUNT 5.48 M/UL (4.70-6.10); RED CELL DISTRIBUTION WIDTH 13.4 % (11.6-14.8)
[2020-01-20] MEDS: Albuterol/Ipratropium 3ml neb HHN PRN (06:39)
[2020-01-20 06:41] LABS: CALCIUM 8.5 MG/DL (8.5-10.1); CREATININE 1.3 MG/DL (0.55-1.30); POTASSIUM 3.8 MMOL/L (3.5-5.1)
--- NOTE | 2020-01-20 07:15 | NUR ---
NURSE HAND-OFF REPORT: Important Events on Shift: Patient Status: Stable Diet: Strict NPO Pending Orders: Pending Results/Labs: Pending MD notification: Latest Vital Signs: Temperature 97.9 , Pulse 61 , B/P 110 /72 , Respiratory Rate 18 , O2 SAT 94 , Room Air, O2 Flow Rate . Vital Sign Comment: EKG Rhythm: Sinus Rhythm Rhythm change?: N MD Notified?: N - MD Response: Latest Camacho Fall Score: 35 Fall Risk: Medium Risk Safety Measures: Call light Within Reach, Bed Alarm Zone 2, Side Rails Side Rails x2, Bed position Low and Locked. Fall Precautions: Yellow Socks Yellow Gown Door Sign Report given to Yari TROTTER.
--- NOTE | 2020-01-20 07:30 | NUR ---
NURSE NOTES: pt in bed AOx4, asking what is the plan for him, he wants to talk to his doctors. 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 Bed locked and in lowest position, call light is within reach. Will continue to monitor pt.
[2020-01-20 08:00] VITALS: BP 126/73
--- NOTE | 2020-01-20 08:26 | Pulmonology Progress Note ---
Subjective Interval Events: None new; had BM Constitutional: Reports: no symptoms HEENT: Repors: no symptoms Respiratory: Reports: no symptoms Cardiovascular: Reports: no symptoms Gastrointestinal/Abdominal: Reports: no symptoms Allergies: Coded Allergies: No Known Allergies (Unverified , 06/24/15) Objective Last 24 Hour Vital Signs Date Time Temp Pulse Resp B/P (MAP) Pulse Ox O2 Delivery O2 Flow Rate FiO2 01/20/20 06:49 69 18 97 Room Air 21 69 20 94 01/20/20 06:34 97.9 01/20/20 05:57 94 Room Air 21 01/20/20 04:00 97.9 65 18 110/72 (85) 94 01/20/20 04:00 61 01/20/20 02:38 98.2 01/20/20 00:00 77 01/20/20 00:00 98.2 81 16 111/75 (87) 94 01/19/20 21:27 97.9 01/19/20 21:08 91 17 95 Room Air 21 89 18 89 01/19/20 21:00 Room Air 01/19/20 20:00 98.2 81 16 111/75 (87) 94 01/19/20 20:00 98.8 86 16 115/84 (94) 94 01/19/20 16:59 97.9 01/19/20 16:00 83 01/19/20 15:54 97.9 70 20 153/91 (111) 96 01/19/20 12:00 75 01/19/20 11:48 97.1 70 20 136/83 (100) 93 01/19/20 09:00 Room Air Intake and Output 01/19/20 01/20/20 19:00 07:00 Output Total 1000 ml 500 ml Balance -1000 ml -500 ml Output Urine Total 1000 ml 500 ml # Bowel Movements 1 3 General Appearance: no acute distress HEENT: normocephalic Respiratory: chest wall non-tender, lungs clear Cardiovascular: normal peripheral pulses, normal rate Abdomen: normal bowel sounds Microbiology Date/Time Source Procedure Growth Status 01/18/20 12:30 Nasopharynx SARS-CoV-2 RdRp Gene Assay - Final Complete Laboratory Tests 01/20/20 05:26: White Blood Count 9.0, Red Blood Count 5.48, Hemoglobin 16.3, Hematocrit 51.3, Mean Corpuscular Volume 94, Mean Corpuscular Hemoglobin 29.8, Mean Corpuscular Hemoglobin Concent 31.9L, Red Cell Distribution Width 13.4, Platelet Count 338, Mean Platelet Volume 5.5L, Neutrophils (%) (Auto) 59.4, Lymphocytes (%) (Auto) 29.5, Monocytes (%) (Auto) 9.0, Eosinophils (%) (Auto) 1.0, Basophils (%) (Auto) 1.0, Sodium Level 142, Potassium Level 3.8, Chloride Level 107, Carbon Dioxide Level 28, Anion Gap 7, Blood Urea Nitrogen 28H, Creatinine 1.3, Estimat Glomerular Filtration Rate 56.5, Glucose Level 93, Calcium Level 8.5 Current Medications Medications (Trade) Dose Ordered Sig/Camilo Route PRN Reason Start Time Stop Time Status Last Admin Dose Admin Albuterol/ Ipratropium (Albuterol/ Ipratropium) 3 ml Q6H PRN HHN Shortness of Breath 01/19/20 20:45 01/24/20 20:44 01/20/20 06:39 Amlodipine Besylate (Norvasc) 5 mg DAILY ORAL 01/20/20 09:00 02/19/20 08:59 Dextrose/Sodium Chloride 1,000 ml @ 75 mls/hr [id number] IV 01/18/20 22:15 02/17/20 22:14 01/20/20 00:26 Hydralazine HCl (Apresoline) 5 mg Q6H PRN IV For High Blood Pressure 01/19/20 01:00 04/18/20 00:59 Hydromorphone HCl (Dilaudid) 0.5 mg Q4H PRN IVP For Pain 01/19/20 20:45 01/26/20 20:44 01/20/20 06:04 Assessment/Plan Assessment/Plan IMPRESSION: 1. No SBO; has normal SBFT 2. Previous cholecystectomy. 3. COPD. 4. Abdominal pain. DISCUSSION: A Seen by cardiology Normal UGI study Will advance diet Dc home today Amelia Krueger Omar Syed MD Jan 20, 2020 08:26
[2020-01-20] MEDS ORDERED: AMLODIPINE BESY10 MG ORAL (08:31)
[2020-01-20] MEDS ORDERED: ZOCOR20 M1 ORAL (08:31)
[2020-01-20] MEDS ORDERED: WIXELA 250-501 EACH IH (08:31)
[2020-01-20] MEDS ORDERED: LISINOPRIL5 MG ORAL (08:31)
[2020-01-20] MEDS ORDERED: VENTOLIN HFA18 GM INH (08:31)
[2020-01-20] MEDS ORDERED: ZOLOFT100 MG ORAL (08:31)
--- NOTE | 2020-01-20 08:55 | Surgery Progress Note ---
Surgery Progress Note Subjective Symptoms: improved, pain absent, tolerating diet, voiding well, passing flatus, BM Objective Last 24 Hour Vital Signs Date Time Temp Pulse Resp B/P (MAP) Pulse Ox O2 Delivery O2 Flow Rate FiO2 01/20/20 06:49 69 18 97 Room Air 21 69 20 94 01/20/20 06:34 97.9 01/20/20 05:57 94 Room Air 21 01/20/20 04:00 97.9 65 18 110/72 (85) 94 01/20/20 04:00 61 01/20/20 02:38 98.2 01/20/20 00:00 77 01/20/20 00:00 98.2 81 16 111/75 (87) 94 01/19/20 21:27 97.9 01/19/20 21:08 91 17 95 Room Air 21 89 18 89 01/19/20 21:00 Room Air 01/19/20 20:00 98.2 81 16 111/75 (87) 94 01/19/20 20:00 98.8 86 16 115/84 (94) 94 01/19/20 16:59 97.9 01/19/20 16:00 83 01/19/20 15:54 97.9 70 20 153/91 (111) 96 01/19/20 12:00 75 01/19/20 11:48 97.1 70 20 136/83 (100) 93 01/19/20 09:00 Room Air I&O Intake and Output 01/19/20 01/20/20 19:00 07:00 Output Total 1000 ml 500 ml Balance -1000 ml -500 ml Output Urine Total 1000 ml 500 ml # Bowel Movements 1 3 Cardiovascular: RSR Respiratory: clear Abdomen: soft, flat, non-tender, present bowel sounds, non-distended Extremities: no edema, no tenderness, no cyanosis Laboratory Tests Test 01/20/20 05:26 White Blood Count 9.0 K/UL (4.8-10.8) Red Blood Count 5.48 M/UL (4.70-6.10) Hemoglobin 16.3 G/DL (14.2-18.0) Hematocrit 51.3 % (42.0-52.0) Mean Corpuscular Volume 94 FL (80-99) Mean Corpuscular Hemoglobin 29.8 PG (27.0-31.0) Mean Corpuscular Hemoglobin Concent 31.9 G/DL (32.0-36.0) L Red Cell Distribution Width 13.4 % (11.6-14.8) Platelet Count 338 K/UL (150-450) Mean Platelet Volume 5.5 FL (6.5-10.1) L Neutrophils (%) (Auto) 59.4 % (45.0-75.0) Lymphocytes (%) (Auto) 29.5 % (20.0-45.0) Monocytes (%) (Auto) 9.0 % (1.0-10.0) Eosinophils (%) (Auto) 1.0 % (0.0-3.0) Basophils (%) (Auto) 1.0 % (0.0-2.0) Sodium Level 142 MMOL/L (136-145) Potassium Level 3.8 MMOL/L (3.5-5.1) Chloride Level 107 MMOL/L (98-107) Carbon Dioxide Level 28 MMOL/L (21-32) Anion Gap 7 mmol/L (5-15) Blood Urea Nitrogen 28 mg/dL (7-18) H Creatinine 1.3 MG/DL (0.55-1.30) Estimat Glomerular Filtration Rate 56.5 mL/min (>60) Glucose Level 93 MG/DL (74-106) Calcium Level 8.5 MG/DL (8.5-10.1) Plan Problems: (1) UGI bleed (2) Dehydration (3) Acute head injury (4) Spine fracture (5) Hemoptysis (6) Gastritis (7) Chronic back pain (8) Leukocytosis (9) Renal insufficiency (10) Nausea and vomiting (11) Abdominal pain Assessment & Plan: 59-year-old male complaining abdominal pain. History of prior abdominal surgery as there is a healing midline abdominal wound identified states that this was done at [facility] for a hole in his intestines. He has been here multiple times in the past and I have seen him before. Currently CT is reviewed and no obstructive signs noted though there is some mildly dilated bowel loops. A upper GI contrast study small bowel follow-through was ordered to ensure no bowel obstruction. Will follow with recommendations thank you for let me participate in patient's care upper gi negative no sbo tolerating diet d/c planning thank you lack of enteric contrast limits assessment of the GI tract. The appendix is normal. There is colonic diverticulosis. No evidence of diverticulitis. There is a small sliding-type hiatal hernia. A focally distended small bowel loop is seen in the abdominal midline just deep to the umbilicus. This is fluid-filled. No abrupt transition demonstrated. On the prior exam, small bowel loops were dilated, over a greater distance than on the current study but overall less markedly dilated. The proximal jejunum is equivocally mildly thick-walled. No free or loculated intraperitoneal gas or fluid is evident. There are small bilateral inguinal hernias that contain only fat. There is a small ventral hernia contains only fat. The included lung bases demonstrate some centrilobular emphysematous changes. Th e bones are unremarkable. Lack of IV contrast limits assessment of the solid organs. The gallbladder has been removed. Previously demonstrated perihepatic fluid and hazy melina hepatis opacity has resolved. A few prominent nodes are seen in the melina hepatis. No biliary ductal dilatation. The pancreas, spleen, adrenals, kidneys are all unremarkable. No pelvic mass or adenopathy. Impression: Limited assessment of the GI tract, due to lack of enteric contrast administration Focally dilated mid abdominal small bowel, probably proximal jejunum, etiology significance uncertain. Note prior study suggest a small bowel obstruction. Fin dings could therefore represent mild small bowel obstruction, and correlation with clinical findings and follow-up radiographs is recommended. Equivocally minimally thick-walled jejunal loops, if real could indicate enteritis changes. Colonic diverticulosis. No evidence of diverticulitis. Note that inflammatory change previously demonstrated in the melina hepatis has largely resolved. Nonspecific prominent lymph nodes in the melina hepatis Prior cholecystectomy. Pulmonary basilar centrilobular emphysematous changes Incidental findings as noted, including bilateral fat-containing inguinal hernias, fat-containing ventral hernia (12) Cough (13) Viral syndrome (14) Abdominal pain, vomiting, and diarrhea (15) Chest pain (16) COPD exacerbation (17) Encounter for generalized patient complaints (18) Small bowel obstruction Titi Pozo Jan 20, 2020 08:55
[2020-01-20 09:01] VITALS: BP 126/73
[2020-01-20 09:24] VITALS: BP 126/73
--- NOTE | 2020-01-20 09:30 | NUR ---
NURSE NOTES: pt is complaining that he will hollie the hospital because ambulance mistreated him. 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 Notified [place] and doctor Benites about pt complains.
[2020-01-20] MEDS ORDERED: Hydromorphone 0.5mg/0.5ml inj IVP PRN (10:00)
--- NOTE | 2020-01-20 11:51 | NUR ---
CASE MANAGEMENT:REVIEW 01/20/20 SI: ABDOMINAL PAIN. COPD SMALL BOWEL FOLLOW THRU ~ NEGATIVE 97.2 72 21 126/73 94% ON RA BUN+28 IS: NORVASC PO QD DUONEB HHN Q6HRS PRN IVF@75/HR IV DILAUDID Q4HRS PRN : TELEMETRY DCP: FROM HOME PLAN: REGULAR DIET DISCHARGE HOME TODAY
--- NOTE | 2020-01-20 14:16 | NUR ---
NURSE NOTES: pt, discharged in safe and stable condition. pt was going to call a taxi. Family friend Franko was informed pt is being DC today Pt took all belongings with him including 2 bags of meds, and a bag with cigarettes as well as cell phone and other belongings. Pt hospital monitor was taken off, no signs of cardiac or respiratory distress noted. Iv line was discontinued, pt is not bleeding. medical bracelet was taken off from pt. V/s within normal parameters. Addendum: 01/20/20 at 1422 by Yari Cifuentes RN [id number] , NURSE NOTES: pt, discharged in safe and stable condition. pt was going to call a taxi. Family friend Franko was informed pt is being DC today Pt took all belongings with him including 2 bags of meds, and a bag with cigarettes as well as cell phone and other belongings. Pt hospital monitor was taken off, no signs of cardiac or respiratory distress noted. Iv line was discontinued, pt is not bleeding. medical bracelet was taken off from pt. V/s within normal parameters
--- NOTE | 2020-01-20 14:29 | NUR ---
NURSE NOTES: pt stated that he does not have a prescription for Lisinopril, or Wixela. 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
--- NOTE | 2020-01-20 14:51 | Cardiology Report ---
APPROVED REPORT EXAM: Two-dimensional and M-mode echocardiogram with Doppler and color Doppler. INDICATION Congestive Heart Failure M-Mode DIMENSIONS IVSd1.0 (0.7-1.1cm)Left Atrium (MM)4.2 (1.6-4.0cm) LVDd4.5 (3.5-5.6cm)Aortic Root3.0 (2.0-3.7cm) PWd1.0 (0.7-1.1cm)Aortic Cusp Exc.2.0 (1.5-2.0cm) IVSs1.9 cmEPSS0.8 (>1.0cm) LVDs2.5 (2.5-4.0cm) PWs1.9 cm <Conclusion> Technically difficult study due to poor parasternal acoustical windows. Normal left ventricular chamber size, systolic function and wall motion. Left ventricular ejection fraction estimated to be 55-60 %. No evidence of left ventricular hypertrophy. No evidence of pericardial effusion. All other cardiac chamber sizes are within normal limits. Focal aortic valve sclerosis with adequate cusp excursion. Thickened mitral valve leaflets with normal excursion. Mitral annulus and aortic root calcification. Pulmonic valve not well visualized. Normal tricuspid valve structure. IVC at normal size with physiologic collapse. A color flow and spectral Doppler study was performed and revealed: No aortic regurgitation. Trace mitral regurgitation. Mitral diastolic velocities suggest reduced left ventricular relaxation c/w mild LV diastolic dysfunction (Grade I ). Trace tricuspid regurgitation. Tricuspid systolic velocities suggests peak right ventricular systolic pressure of 9 mmHg. No pulmonic regurgitation present.
--- NOTE | 2020-01-20 16:00 | Consultation ---
DATE OF CONSULTATION: 01/20/2020 CHIEF COMPLAINT: Abdominal pain. HISTORY OF PRESENT ILLNESS: This is a 59-year-old male, originally admitted through the ER with small-bowel obstruction. The patient complains of epigastric pain, shortness of breath. He recently had abdominal surgery and pain has continued from that time. At the time of exam, the patient reports some significant abdominal pain. Complains of cough and shortness of breath. PAST MEDICAL HISTORY: COPD, tobacco smoker, hypertension, psychiatric disorder, abdominal pain. PAST SURGICAL HISTORY: Laparotomy and cholecystectomy. ALLERGIES: No known drug allergies. HOME MEDICATIONS: Reviewed. SOCIAL HISTORY: Former tobacco smoker. REVIEW OF SYSTEMS: Denies current chest pain, orthopnea, nausea, vomiting, fever, chills, leg swelling, or leg pain. PHYSICAL EXAMINATION: GENERAL: No acute distress, calm and cooperative. VITAL SIGNS: Reviewed with nursing. Blood pressure 142/80, heart rate 70, respiratory rate 16, O2 saturation 96% on room air. HEENT: EOMs intact. Nonicteric. NECK: No JVD. No bruit. CHEST: Symmetrical expansion. Decreased breath sounds with cough. CARDIOVASCULAR: Rate and rhythm regular, S1 and S2. No significant murmur to auscultation. ABDOMEN: Soft. Midline laparotomy scar. Diffusely tender. EXTREMITIES: No significant edema, bilateral lower extremities. NEUROLOGIC: Grossly nonfocal. LABORATORY DATA: Labs reviewed, significant for hyperkalemia, potassium 5.2. IMAGING STUDIES: Echocardiogram, ejection fraction 55%, no significant valvular disease. EKG, sinus rhythm, no ischemic changes, no ST elevations or depressions. ASSESSMENT AND PLAN: 1. Small-bowel obstruction, patient being seen by General Surgery. 2. Hypertension. 3. Hyperkalemia. 4. COPD. 5. Abdominal pain. RECOMMENDATIONS: Echocardiogram was ordered last night, done this morning, appears within normal limits, ejection fraction 55%, well preserved left ventricular function, no acute heart failure. Medication adjusted for better systolic blood pressure control, patient has been on lisinopril. That is now discontinued. We have added amlodipine due to hyperkalemia. Further recommendations to follow clinical progress. Jhon Gonsales M.D. Deepa Rayo PA-C DR: Brigitte JOB#: [id number] CC:
--- NOTE | 2020-01-21 15:17 | Discharge Summary ---
Discharge Summary Discharge Summary _ DATE OF ADMISSION: 01/18/2020 DATE OF DISCHARGE: 01/20/2020 DISCHARGED BY: Dr. Benites REASON FOR ADMISSION: 59 years old male with past medical history of COPD, chronic tobacco user , psychiatric disorder , status post cholecystectomy and laparotomy , presented to the hospital complaining of epigastric abdominal pain along with cough and shortness of breath. Symptoms were present for the last few days. He reported associated nausea , vomiting and diarrhea. No fevers. No urinary complaints. Upon evaluation vital signs were stable. Laboratory work-up revealed leukocytosis WBC 12.8, stable hemoglobin , hematocrit and platelet count. Stable electrolytes and renal parameters. Glucose 106. Stable LFT and lipase. Troponin negative , pro BNP 54 , EKG revealed sinus rhythm, no acute ischemic changes. Rapid COVID-[address] of the abdomen and pelvis revealed evidence of focally dilated mid abdominal small bowel , probably proximal jejunum. Possible mild small bowel obstruction. Possible enteritis changes. Colonic diverticulosis without evidence of diverticulitis. Patient received IV fluids , loading dose of steroid, nebulizing treatment with bronchodilator , analgesic, antiemetic and admitted for further management. 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 Gonsales surgery Dr. Pozo [facility] COURSE: Patient admitted to telemetry floor. Patient was kept n.p.o. . Patient was provided with IV fluids and analgesics. Pain management was addressed. DVT prophylaxis provided. Supplemental oxygen was on board as needed to keep pulse oximetry above 92%. Bronchodilator treatment via HHN provided. Upper GI series revealed no evidence of bowel obstruction. Patient was passing flatus and started on the liquid diet, which was advanced as tolerated. Patient was able to tolerate diet. Echocardiogram demonstrated preserved ejection fraction of 55%, no evidence of heart failure. Antihypertensive regimen optimized to maintain better systolic blood pressure control. Lisinopril discontinued secondary to hyperkalemia ( k-5.2 on 01/17). Blood pressure was managed with calcium channel abi , and hydralazine was on board as needed for blood pressure spikes. Blood pressure stable. Leukocytosis resolved. Pulse oximetry stable on room air . Pain was controlled . Patient was able to tolerate diet. Patient clinically stabilized and was ready for discharge home. FINAL DIAGNOSES: Abdominal pain ( rule out small bowel obstruction - negative) History of cholecystectomy Hypertension Hyperkalemia COPD DISCHARGE MEDICATIONS: See Medication Reconciliation list. DISCHARGE INSTRUCTIONS: Patient was discharged home. Follow-up with the primary care provider in 1 week. I have been assigned to dictate discharge summary for this account. I was not involved in the patient's management. Agustina Hudson NP Jan 21, 2020 15:17
--- NOTE | 2020-01-21 16:38 | NUR ---
INSURANCE DC SUMMARY FAXED TO BRITTANY MUKHERJEE T: [phone] F: [phone]
== END 2020-01-20 10:39 | disposition home or self-care (01) | DRG 192 ==
LOC: EDBD 11:42 → EMR 14:38 → 3E 17:15 → EDBEDREQ 19:58 → 2E 23:58
DX: J44.1 Chronic obstructive pulmonary disease with (acute) exacerbation (principal); R73.9 Hyperglycemia, unspecified; B34.9 Viral infection, unspecified; Z90.49 Acquired absence of other specified parts of digestive tract; F17.200 Nicotine dependence, unspecified, uncomplicated; K40.90 Unilateral inguinal hernia, without obstruction or gangrene, not specified as recurrent; K43.9 Ventral hernia without obstruction or gangrene; I10 Essential (primary) hypertension; G89.29 Other chronic pain; M54.9 Dorsalgia, unspecified; K57.90 Diverticulosis of intestine, part unspecified, without perforation or abscess without bleeding; F99 Mental disorder, not otherwise specified; K44.9 Diaphragmatic hernia without obstruction or gangrene; R10.9 Unspecified abdominal pain; R11.2 Nausea with vomiting, unspecified; R19.7 Diarrhea, unspecified; R07.9 Chest pain, unspecified
CPT/HCPCS: 36415; 71045; 74176; 74250; 80048; 80053; 81003; 83690; 83880; 84484; 85025; 93005; 93306; 94640; 96361; 96365; 96375; 96376; 99285; J2405; J7030; J7620; U0002

== ENCOUNTER 2020-03-10 16:06 | Emergency (ER) | payer OTHER ==
[~2020-03-10] VITALS: Ht 172.7 cm; Wt 72.6 kg
[~2020-03-10 16:06] MED LIST changes: +AMLODIPINE BESY10 MG ORAL; +ATROVENT HFA12.9 GM IH; +LISINOPRIL5 MG ORAL; +WIXELA 250-501 EACH IH
--- NOTE | 2020-03-10 17:10 | Diagnostic Imaging Report ---
Indication: Shortness of breath Technique: One view of the chest Comparison: 01/18/2020 Findings: Lungs and pleural spaces are clear. Heart size is normal. Impression: No acute process
--- NOTE | 2020-03-10 17:17 | Emergency Room Report ---
History of Present Illness General Chief Complaint: Abdominal Pain Source: Patient (Marilynn Lee) Present Illness HPI 59-year-old male with history of COPD, bowel obstruction, and unknown psychiatric history here complaining of worsening abdominal pain. Patient was last seen in [place] beginning of January 2020 for abdominal pain, admitted and discharged 2 days later. Patient reports that 2 weeks ago he went to a different hospital and was also admitted. Patient reports that abdominal pain continues. Appears to be having chronic bowel obstruction. Last visit [place] patient had a surgical consult. Denies any nausea vomiting at this time. Also complains of chronic cough with exacerbation of shortness of breath. Has not taken medication for symptom relief at this time. 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 (Marilynn Lee) Patient History Past Medical History: see triage record Past Surgical History: none Pertinent Family History: none Immunizations: UTD Reviewed Nursing Documentation: PMH: Agreed; PSxH: Agreed (Marilynn Lee) Nursing Documentation-PMH Hx Cardiac Problems: Yes Hx Hypertension: Yes Hx Asthma: Yes Hx COPD: Yes - RESPIRATORY FAILURE Hx Cancer: No Hx Gastrointestinal Problems: Yes - cholecystectomy, GI bleeding, perforated ulcer Hx Neurological Problems: No - acute head injury (Marilynn Lee) Review of Systems All Other Systems: negative except mentioned in HPI (Marilynn Lee) Physical Exam Vital Signs Date Time Temp Pulse Resp B/P (MAP) Pulse Ox O2 Delivery O2 Flow Rate FiO2 03/10/20 16:18 98.1 88 18 140/90 (107) 97 Room Air Sp02 EP Interpretation: reviewed, normal General Appearance: mild distress Head: normocephalic, atraumatic Eyes: bilateral eye normal inspection, bilateral eye PERRL ENT: hearing grossly normal, no angioedema, normal voice Neck: supple Respiratory: no respiratory distress, no retraction, no accessory muscle use Cardiovascular #1: regular rate, rhythm, no edema Gastrointestinal: normal bowel sounds, non tender, soft, non-distended, no guarding, no rebound Rectal: deferred Genitourinary: no CVA tenderness Musculoskeletal: back normal Neurologic: alert, motor strength/tone normal, oriented x3, sensory intact, responsive, speech normal Psychiatric: judgement/insight normal, memory normal, mood/affect normal, no suicidal/homicidal ideation Skin: no rash, palpation normal Lymphatic: no adenopathy (Marilynn Lee) Medical Decision Making PA Attestation All diagnoses and treatment plans were reviewed and discussed with my supervising physician Dr. Huang (Marilynn Lee) Diagnostic Impression: Primary Impression: COVID-19 virus infection Additional Impression: Chronic abdominal pain ER Course 59-year-old male with history of COPD, bowel obstruction, and unknown psychiatric history here complaining of worsening abdominal pain. Patient was last seen in [place] beginning of January 2020 for abdominal pain, admitted and discharged 2 days later. Patient reports that 2 weeks ago he went to a different hospital and was also admitted. Patient reports that abdominal pain continues. Appears to be having chronic bowel obstruction. Last visit [place] patient had a surgical consult. Denies any nausea vomiting at this time. Also complains of chronic cough with exacerbation of shortness of breath. Has not taken medication for symptom relief at this time. Ddx considered but are not limited to: appendicitis, cholecystis, gastritis, gastroenteritis, UTI, pyelonephritis, SBO, diverticulitis, influenza with GI manifestation, DC, Vital signs: are WNL, pt. is afebrile H&PE are most consistent with: Covid infection, chronic abdominal pain ORDERS: abdominal pain order set, ER Covid order set, Zofran, Pepcid, dicyclomine, azithromycin, Phenergan ED INTERVENTIONS: NS bolus, Zofran, Pepcid Patient had a recent CT scan in January and within normal limits patient has had multiple CT scans all emphasizing that the pain and obstruction is chronic, last he was thought in [place] and was admitted January 2020, surgeon consulted him and indicated that patient has chronic bowel obstruction. Patient is to follow-up with GI. At this time I do not believe that further imaging of the abdomen needed. DISCHARGE: At this time pt. is stable for d/c to home. Will provide printed patient care instructions, and any necessary prescriptions. Care plan and follow up instructions have been discussed with the patient prior to discharge. Quarantine for 14 days, take medication as directed, follow primary care provider, if worsening symptom return to the emergency room (Marilynn Lee) ER Course Please see above note. The patient was discussed in detail including diagnoses, laboratory evaluation and clinical status. This patient was evaluated in the context of the global COVID-19 pandemic, which necessitated consideration that the patient might be at risk for infection with the [id number] virus that causes COVID-19. Institutional protocols and algorithms that pertain to the evaluation of patients at risk for COVID-19 and the state of rapid change based on information released by multiple regulatory bodies including the CDC and federal and state organizations. These policies and algorithms were followed during the patient's care in the ED. I agree with treatment plan and disposition. (Graham Huang MD) EKG Diagnostic Results Rate: normal Rhythm: NSR ST Segments: no acute changes Other Impression No acute ST changes (Marilynn Lee) Chest X-Ray Diagnostic Results Chest X-Ray Diagnostic Results : Chest X-Ray Ordered: Yes # of Views/Limited/Complete: 1 View Indication: Shortness of Breath EP Interpretation: Yes PA Xray: Interpretation reviewed, by supervising MD, and agrees with findings. Interpretation: no consolidation, no effusion, no pneumothorax Impression: No acute disease Electronically Signed by: Marilynn Plummer PA-C (Marilynn Lee) Chest X-Ray Diagnostic Results : Electronically Signed by: Fredis Rodriguez documentation of Xray reviewed by me and is accurate, Graham Huang MD (Graham Huang MD) Last Vital Signs Date Time Temp Pulse Resp B/P (MAP) Pulse Ox O2 Delivery O2 Flow Rate FiO2 03/10/20 16:18 98.1 88 18 140/90 (107) 97 Room Air (Marilynn Lee) Status: improved (Graham Huang MD) Disposition: HOME, SELF-CARE Condition: Stable Scripts Dicyclomine Hcl* (DICYCLOMINE HCL*) 10 Mg Capsule 10 MG ORAL TID, #10 CAP Prov: Marilynn Lee 03/10/20 Famotidine* (Pepcid 20mg tablet*) 20 Mg Tablet 20 MG ORAL DAILY for Gerd, #30 TAB 0 Refills Prov: Marilynn Lee 03/10/20 Ondansetron (Zofran) 4 Mg Tablet 4 MG ORAL Q6H PRN for Nausea & Vomiting, #14 TAB Prov: Marilynn Lee 03/10/20 Promethazine Hcl (PROMETHAZINE HCL*) 6.25 Mg/5 Ml Syrup 5 ML ORAL Q6H, #120 ML 0 Refills Prov: Marilynn Lee 03/10/20 Azithromycin* (ZITHROMAX*) 250 Mg Tablet 250 MG ORAL DAILY, #6 TAB 0 Refills Take two tables once daily for 1 day, then one tablet once daily for 4 days. Prov: Marilynn Lee 03/10/20 Patient Instructions: Abdominal Pain, Adult Additional Instructions: Quarantine for 14 days, take medication as directed, follow primary care provider, if worsening symptom return to the emergency room Marilynn Lee Mar 10, 2020 17:17 Graham Huang MD Mar 11, 2020 02:18
[2020-03-10 17:18] LABS: BASOPHILS % (AUTO) 0.8 % (0.0-2.0); EOSINOPHILS % (AUTO) 0.7 % (0.0-3.0); HEMATOCRIT 49.7 % (42.0-52.0); HEMOGLOBIN 17.4 G/DL (14.2-18.0); LYMPHOCYTES % (AUTO) 31.9 % (20.0-45.0); MEAN CORPUSCULAR VOLUME 84 FL (80-99); MONOCYTES % (AUTO) 7.8 % (1.0-10.0); NEUTROPHILS % (AUTO) 58.8 % (45.0-75.0); PLATELET COUNT 277 K/UL (150-450); RED BLOOD COUNT 5.95 M/UL (4.70-6.10); RED CELL DISTRIBUTION WIDTH 14.5 % (11.6-14.8); WHITE BLOOD COUNT 6.7 K/UL (4.8-10.8)
[2020-03-10 17:41] LABS: ANION GAP 5 mmol/L (5-15); BLOOD UREA NITROGEN 18 mg/dL (7-18); CALCIUM 8.5 MG/DL (8.5-10.1); CARBON DIOXIDE 30 MMOL/L (21-32); CHLORIDE 102 MMOL/L (98-107); CREATININE 1.1 MG/DL (0.55-1.30); POTASSIUM 3.6 MMOL/L (3.5-5.1); SODIUM 137 MMOL/L (136-145)
[2020-03-10 17:45] LABS: ALANINE AMINOTRANSFERASE 25 U/L (12-78); ALBUMIN 3.5 G/DL (3.4-5.0); ALBUMIN/GLOBULIN RATIO 0.8 (1.0-2.7); ALKALINE PHOSPHATASE 154 U/L (46-116); ASPARTATE AMINO TRANSFERASE 15 U/L (15-37); BILIRUBIN,TOTAL 0.3 MG/DL (0.2-1.0)
[2020-03-10 18:02] LABS: CKMB 0.5 NG/ML (0.0-3.6); CREATINE KINASE 52 U/L (26-308); FERRITIN 31 NG/ML (8-388); LACTATE DEHYDROGENASE 174 U/L (81-234)
[2020-03-10] MEDS ORDERED: FAMOTIDINE20 MG ORAL (18:02)
[2020-03-10] MEDS ORDERED: ZOFRAN4 M1 ORAL (18:02)
[2020-03-10] MEDS ORDERED: DICYCLOMINE HCL10 MG ORAL (18:02)
[2020-03-10] MEDS ORDERED: ZITHROMAX250 MG ORAL (18:02)
[2020-03-10] MEDS ORDERED: PROMETHAZI6.25 MG/1 ORAL (18:02)
[2020-03-10 18:55] VITALS: BP 133/79
== END 2020-03-10 18:55 | disposition home or self-care (01) ==
LOC: EDBD 16:06 → EDUNIT# 16:06 → EMR 16:45
DX: U07.1 COVID-19 (principal); G89.29 Other chronic pain; R10.9 Unspecified abdominal pain; I11.9 Hypertensive heart disease without heart failure; J44.9 Chronic obstructive pulmonary disease, unspecified; Z90.49 Acquired absence of other specified parts of digestive tract
CPT/HCPCS: 36415; 71045; 80053; 82550; 82553; 82728; 83605; 83615; 83690; 84484; 85025; 85379; 85610; 85730; 86140; 87040; 93005; 96361; 96374; 99284; G0480; J2405; J7030; U0002